=== PATIENT | female | born 1970 | race Caucasian/White ===

== ENCOUNTER 2022-09-29 13:30 | Outpatient (REF) | payer OTHER, SELFPAY ==
--- NOTE | ~2022-09-29 | XR_ITS ---
EXAMINATION: Bilateral foot and ankle x-ray CLINICAL INFORMATION: Rheumatoid arthritis COMPARISON: None. TECHNIQUE: 3 views of each foot and ankle FINDINGS: Left ankle: Bone alignment is normal. No fracture or dislocation. There is large erosion of the medial talus at the tibiotalar joint. The ankle mortise is otherwise normal. No significant ankle joint effusion. Small plantar calcaneal spur. Left foot: Contractures of the toes. Bone alignment is otherwise normal. No fracture or dislocation. Joint spaces are normal. Plantar calcaneal spur. Soft tissues are otherwise normal. Right ankle: Bone alignment is normal. No acute fracture or dislocation. Bony protuberance off the medial malleolus, question related to old trauma. Question of erosive changes of the inferior medial malleolus and adjacent soft tissue swelling. This is better appreciated on the AP view of the foot.. The ankle joint is otherwise normal. No ankle joint effusion. Normal soft tissues. Right foot: Bone alignment is normal. No fracture or dislocation. Joint spaces are normal. Soft tissues are normal. XR/XR foot LT min 3V IMPRESSION: Left: Large erosion of the medial talus at the tibiotalar joint. Contractures of the toes. Right: Question erosive changes of the medial malleolus and adjacent soft tissue swelling.
--- NOTE | ~2022-09-29 | XR_ITS ---
EXAMINATION: Bilateral hand and wrist x-ray CLINICAL INFORMATION: Rheumatoid arthritis COMPARISON: None. TECHNIQUE: 4 views of each hand and wrist FINDINGS: Right: Bone alignment is normal. No fracture or dislocation. Small erosion at the radial DIP joint of the second finger. Small cyst in the base of the first metacarpal bone, lunate and question distal ulna. Small osteophytes at the IP joints. Soft tissue calcification adjacent to the dorsal middle phalanx of the second finger likely related to old trauma. Left: Bone alignment is normal. No fracture or dislocation. Osteophytes at the DIP joints of the second and third fingers. Small cyst in the ulnar styloid. XR/XR hand wrist LT IMPRESSION: Right: Small erosions at the radial side of the DIP joint of the second finger. Small osteophytes at the IP joints. Small cysts in the hand and wrist. Soft tissues are unremarkable. Left: Osteophytes at the DIP joints of the second and third fingers and small cyst in the ulnar styloid.
--- NOTE | ~2022-09-29 | XR_ITS ---
EXAMINATION: Bilateral knee x-ray CLINICAL INFORMATION: Rheumatoid arthritis COMPARISON: None. TECHNIQUE: 4 views of each knee FINDINGS: Right: Bone alignment is normal. There are small osteophytes at the femoral tibial and patellofemoral joints. There is a moderate joint effusion. No erosions. There is soft tissue swelling over the patellar tendon Left: Bone alignment is normal. No osteophytes at the femoral tibial and patellofemoral joints. Small to moderate joint effusion. No erosions. Normal soft tissues. XR/XR knee standing BI IMPRESSION: Mild bilateral degenerative arthritis and joint effusion. Soft tissue swelling over the right patellar tendon.
--- NOTE | ~2022-09-29 | XR_ITS ---
EXAMINATION: Bilateral foot and ankle x-ray CLINICAL INFORMATION: Rheumatoid arthritis COMPARISON: None. TECHNIQUE: 3 views of each foot and ankle FINDINGS: Left ankle: Bone alignment is normal. No fracture or dislocation. There is large erosion of the medial talus at the tibiotalar joint. The ankle mortise is otherwise normal. No significant ankle joint effusion. Small plantar calcaneal spur. Left foot: Contractures of the toes. Bone alignment is otherwise normal. No fracture or dislocation. Joint spaces are normal. Plantar calcaneal spur. Soft tissues are otherwise normal. Right ankle: Bone alignment is normal. No acute fracture or dislocation. Bony protuberance off the medial malleolus, question related to old trauma. Question of erosive changes of the inferior medial malleolus and adjacent soft tissue swelling. This is better appreciated on the AP view of the foot.. The ankle joint is otherwise normal. No ankle joint effusion. Normal soft tissues. Right foot: Bone alignment is normal. No fracture or dislocation. Joint spaces are normal. Soft tissues are normal. XR/XR ankle LT min 3V IMPRESSION: Left: Large erosion of the medial talus at the tibiotalar joint. Contractures of the toes. Right: Question erosive changes of the medial malleolus and adjacent soft tissue swelling.
--- NOTE | ~2022-09-29 | XR_ITS ---
EXAMINATION: Bilateral hand and wrist x-ray CLINICAL INFORMATION: Rheumatoid arthritis COMPARISON: None. TECHNIQUE: 4 views of each hand and wrist FINDINGS: Right: Bone alignment is normal. No fracture or dislocation. Small erosion at the radial DIP joint of the second finger. Small cyst in the base of the first metacarpal bone, lunate and question distal ulna. Small osteophytes at the IP joints. Soft tissue calcification adjacent to the dorsal middle phalanx of the second finger likely related to old trauma. Left: Bone alignment is normal. No fracture or dislocation. Osteophytes at the DIP joints of the second and third fingers. Small cyst in the ulnar styloid. XR/XR hand wrist RT IMPRESSION: Right: Small erosions at the radial side of the DIP joint of the second finger. Small osteophytes at the IP joints. Small cysts in the hand and wrist. Soft tissues are unremarkable. Left: Osteophytes at the DIP joints of the second and third fingers and small cyst in the ulnar styloid.
--- NOTE | ~2022-09-29 | XR_ITS ---
EXAMINATION: Bilateral knee x-ray CLINICAL INFORMATION: Rheumatoid arthritis COMPARISON: None. TECHNIQUE: 4 views of each knee FINDINGS: Right: Bone alignment is normal. There are small osteophytes at the femoral tibial and patellofemoral joints. There is a moderate joint effusion. No erosions. There is soft tissue swelling over the patellar tendon Left: Bone alignment is normal. No osteophytes at the femoral tibial and patellofemoral joints. Small to moderate joint effusion. No erosions. Normal soft tissues. XR/XR knee LT 3V IMPRESSION: Mild bilateral degenerative arthritis and joint effusion. Soft tissue swelling over the right patellar tendon.
--- NOTE | ~2022-09-29 | XR_ITS ---
EXAMINATION: Bilateral knee x-ray CLINICAL INFORMATION: Rheumatoid arthritis COMPARISON: None. TECHNIQUE: 4 views of each knee FINDINGS: Right: Bone alignment is normal. There are small osteophytes at the femoral tibial and patellofemoral joints. There is a moderate joint effusion. No erosions. There is soft tissue swelling over the patellar tendon Left: Bone alignment is normal. No osteophytes at the femoral tibial and patellofemoral joints. Small to moderate joint effusion. No erosions. Normal soft tissues. XR/XR knee RT 3V IMPRESSION: Mild bilateral degenerative arthritis and joint effusion. Soft tissue swelling over the right patellar tendon.
--- NOTE | ~2022-09-29 | XR_ITS ---
EXAMINATION: Bilateral foot and ankle x-ray CLINICAL INFORMATION: Rheumatoid arthritis COMPARISON: None. TECHNIQUE: 3 views of each foot and ankle FINDINGS: Left ankle: Bone alignment is normal. No fracture or dislocation. There is large erosion of the medial talus at the tibiotalar joint. The ankle mortise is otherwise normal. No significant ankle joint effusion. Small plantar calcaneal spur. Left foot: Contractures of the toes. Bone alignment is otherwise normal. No fracture or dislocation. Joint spaces are normal. Plantar calcaneal spur. Soft tissues are otherwise normal. Right ankle: Bone alignment is normal. No acute fracture or dislocation. Bony protuberance off the medial malleolus, question related to old trauma. Question of erosive changes of the inferior medial malleolus and adjacent soft tissue swelling. This is better appreciated on the AP view of the foot.. The ankle joint is otherwise normal. No ankle joint effusion. Normal soft tissues. Right foot: Bone alignment is normal. No fracture or dislocation. Joint spaces are normal. Soft tissues are normal. XR/XR foot RT min 3V IMPRESSION: Left: Large erosion of the medial talus at the tibiotalar joint. Contractures of the toes. Right: Question erosive changes of the medial malleolus and adjacent soft tissue swelling.
--- NOTE | ~2022-09-29 | XR_ITS ---
EXAMINATION: Bilateral foot and ankle x-ray CLINICAL INFORMATION: Rheumatoid arthritis COMPARISON: None. TECHNIQUE: 3 views of each foot and ankle FINDINGS: Left ankle: Bone alignment is normal. No fracture or dislocation. There is large erosion of the medial talus at the tibiotalar joint. The ankle mortise is otherwise normal. No significant ankle joint effusion. Small plantar calcaneal spur. Left foot: Contractures of the toes. Bone alignment is otherwise normal. No fracture or dislocation. Joint spaces are normal. Plantar calcaneal spur. Soft tissues are otherwise normal. Right ankle: Bone alignment is normal. No acute fracture or dislocation. Bony protuberance off the medial malleolus, question related to old trauma. Question of erosive changes of the inferior medial malleolus and adjacent soft tissue swelling. This is better appreciated on the AP view of the foot.. The ankle joint is otherwise normal. No ankle joint effusion. Normal soft tissues. Right foot: Bone alignment is normal. No fracture or dislocation. Joint spaces are normal. Soft tissues are normal. XR/XR ankle RT min 3V IMPRESSION: Left: Large erosion of the medial talus at the tibiotalar joint. Contractures of the toes. Right: Question erosive changes of the medial malleolus and adjacent soft tissue swelling.
[2022-09-29 15:23] LABS: MANUAL DIFF FLAG NO
[2022-09-29 15:49] LABS: Basophils Percent Auto 0.7 % (0-2); Hematocrit 41.7 % (37.0-47.0); Imm Gran Abs Auto 0.03 X10*3/uL (0.00-0.03); Imm Gran Pct Auto 0.5 % (0.0-0.4); Lymphocytes Absolute Auto 1.7 X10*3/uL (1.2-4.9); Lymphocytes Percent Auto 28.2 % (20-40); Mean Corpuscular HGB Conc 33.6 g/dl (31.0-35.0); Mean Corpuscular Hemoglobin 28.8 pg (27.0-33.0); Mean Corpuscular Volume 85.8 fL (80.0-98.0); Mean Platelet Volume 10.3 fL (9.4-12.3); Monocytes Absolute Auto 0.5 X10*3/uL (0.1-1.2); Monocytes Percent Auto 7.5 % (2-11); Neutrophils Absolute Auto 3.9 x10*3/uL (2.0-8.3); Neutrophils Percent Auto 63.1 % (45-73); Platelet Count 281 X10*3/uL (160-400); Red Blood Count 4.86 X10*6/uL (4.20-5.50); Red Cell Distribution Width 12.6 % (11.0-16.0); White Blood Count 6.1 X10*3/uL (4.8-10.8)
[2022-09-29 16:27] LABS: Erythrocyte Sedimentation Rate 16 MM/HR (0-20)
[2022-09-29 16:34] LABS: Alanine Aminotransferase 29 U/L (0-31); Albumin Level 4.2 g/dL (3.5-5.0); Alkaline Phosphatase 109 U/L (39-117); Anion Gap 15 (12-20); Aspartate Amino Transferase 20 U/L (5-31); Bilirubin Total 0.9 mg/dL (0.0-1.0); Blood Urea Nitrogen 15 mg/dL (9-16); C Reactive Protein 1.76 mg/dL (< or = 0.50); Calcium 9.8 mg/dL (8.4-10.2); Carbon Dioxide 25 mmol/L (22-29); Chloride 107 mmol/L (96-108); Estimated Glomerular Filt Rate > 60; Glucose Random 94 mg/dL (60-115); Potassium 4.2 mmol/L (3.3-5.1); Rheumatoid Factor < 13.0 IU/mL (<15.0); Sodium 143 mmol/L (135-145); Total Protein 7.3 g/dL (6.5-8.0)
[2022-09-30 07:51] LABS: HBS Num1 4.39 mIU/mL (0-7.99); HBc Num1 0.09 S/CO (0.00-0.79); HBsAGNum1 0.27 S/CO (0.00-0.99); Hepatitis A Antibody IgM 0.37 Index (0-0.79); Hepatitis B Core Antibody Nonreactive (Nonreactive); Hepatitis B Surface Antigen Negative (Negative); ~HepC Num1 0.12 S/CO (0.00-0.79); ~Hepatitis A Antibody IgM Nonreactive (Nonreactive); ~Hepatitis B Surface Antibody NONREACTIVE (Nonreactive); ~Hepatitis C Antibody Nonreactive (Nonreactive)
[2022-10-01 17:18] LABS: TS Negative Control Passed; TS Panel A 0; TS Panel B 0; TS Positive Control Passed; TSpotTB Negative (Negative)
[2022-10-02 00:47] LABS: IgA 195 mg/dL (47-310); IgG 1103 mg/dL (600-1640); IgM 168 mg/dL (50-300)
[2022-10-04 20:34] LABS: Prot Elec - Albumin 4.3 g/dL (3.8-4.8); Prot Elec - Alpha1 0.4 g/dL (0.2-0.3); Prot Elec - Alpha2 0.8 g/dL (0.5-0.9); Prot Elec - Beta 1 0.5 g/dL (0.4-0.6); Prot Elec - Beta 2 0.4 g/dL (0.2-0.5); Prot Elec - Total Protein 7.4 g/dL (6.1-8.1)
[2022-10-05 11:18] LABS: Cyclic Citrullinated Peptide <16 UNITS
== END 2022-09-29 13:31 | disposition home or self-care (01) ==
LOC: HO.LNP 13:30
PROVIDERS: PCP Internal Medicine; Visit Provider Student in an Organized Health Care Education/Training Program
DX: Z11.7 Encounter for testing for latent tuberculosis infection (principal); Z11.59 Encounter for screening for other viral diseases; M06.9 Rheumatoid arthritis, unspecified; Z72.89 Other problems related to lifestyle
CPT/HCPCS: 36415; 73110; 73130; 73562; 73564; 73565; 73610; 73630; 80053; 82784; 84165; 85025; 85652; 86140; 86200; 86334; 86431; 86481; 86704; 86706; 86709; 86803; 87340; 99202

== ENCOUNTER 2022-12-29 14:28 | Outpatient (AMB) | payer OTHER, SELFPAY ==
[2022-12-29 14:45] VITALS: BP 120/72; PULSE 71; TEMP 36.5; O2SAT 98; BMI 42.9
--- NOTE | 2022-12-29 14:45 | A.OFFVIS_ITS ---
Intake Vital Signs 12/29/22 14:45 Height 5 ft 3 in Weight 242 lb 4.608 oz BMI 42.9 BP 120/72 Blood Pressure Location Rt brachial Position Sitting Pulse 71 Pulse Source Pulse Oximeter Temp 97.7 F Temp Source Skin Pulse Oximetry (%) 98 Oxygen Delivery Method Room Air Intake Visit Reasons: RA Intake Note: Here for RA follow up. Humira not working . c/o left knee pain and swelling worsening, feet neuropathy worsening Assessment Specialist Required: No Accompanied by: Significant Other Allergies hydroxyzine Allergy (Mild, Verified 12/29/22 14:50) Hives Penicillins Adverse Reaction (Unknown, Verified 12/29/22 14:50) Unknown Medication List - Last Reconciled 12/29/22 by Jose Manuel Thao MD amoxicillin-pot clavulanate 875-125 mg 1 tab PO BID 2 weeks aripiprazole 5 mg PO DAILY baclofen 5 mg PO BEDTIME PRN cholecalciferol (vitamin D3) (Vitamin D3) 50 mcg PO DAILY dicyclomine 10 mg PO ibuprofen 600 mg PO BID PRN levothyroxine 150 mcg PO DAILY losartan 50 mg PO DAILY meclizine 25 mg PO TID PRN prazosin 4 mg PO BEDTIME prednisone Take 3 tabs by mouth once daily with breakfast for 1 week then 2 tabs daily for 1 week then 1 tab daily for 1 week then stop venlafaxine ER 150 mg PO DAILY HPI HPI Comments History of Present Illness Details 52-year-old female with seronegative RA returns for follow-up. Patient has been on Humira for the last 3 months without much improvement. Continues to have pain in her wrists, fingers, hips, knees, worse on the left ankles and feet. Continues to have tingling and numbness in the bottom of her feet. Her dog bit her left hand yesterday. Her PCP prescribed her a prednisone course about 2 months ago which was helpful. For her left knee pain she was evaluated by an orthopedist and a left knee MRI was ordered. Initial history: This is a 51-year-old female who presents for evaluation of rheumatoid arthritis. She moved from [place] around 2 years ago. She has not established care with a therapeutic mentor in [place]. He states that she was diagnosed with rheumatoid arthritis around 2003. Initially she was on NSAIDs and Tylenol as well as steroid injections. She was on hydroxychloroquine briefly which was not effective. She was started on Humira 2009 which was effective. She has not taken Humira since 2020 after she left [place]. Patient is having pain in her hands feet, hips, knees, lower back. Few months ago she had steroid injections for bilateral hip trochanteric bursitis which only gave about a week relief. She then went for physical therapy for troc hanteric bursitis which provided some relief. She just completed physical therapy last week. States that her mother had RA [facility] Medical History (Updated 12/29/22 @ 15:29 by Jose Manuel Thao MD) Anxiety Carpal tunnel syndrome on both sides Depression Dyslipidemia Fibromyalgia, primary Hypothyroidism Prediabetes PTSD (post-traumatic stress disorder) Rheumatoid arthritis Surgical History H/O colonoscopy Family History Mother Diabetes Rheumatoid arthritis Father Colon cancer Social History Household Members: Spouse Household Members Other:: Antoni Sanchez Alcohol intake: current Alcohol intake frequency: holidays/special occasions only Patient Tobacco Use Status: Never used Tobacco Current occupational status: employed Current occupation: [employer] Reports arthralgias, Reports joint swelling, Reports numbness and Reports stiffness Neuro Reports numbness Physical Exam Vital Signs: Last Vital Signs Temp 97.7 F 12/29/22 14:45 Pulse 71 12/29/22 14:45 BP 120/72 12/29/22 14:45 Pulse Ox 98 12/29/22 14:45 Oxygen Delivery Method Room Air 12/29/22 14:45 BMI result Body Mass Index 42.9 Const General: cooperative, healthy appearing and comfortable Nutritional Appearance: obese morbidly obese Orientation/consciousness: patient oriented x3 Limitations: no limitations HEENT Head: Yes normocephalic and Yes atraumatic Resp Effort & Inspection: normal respiratory effort and able to speak in complete sentences Cardio Rate: regular rate Rhythm: regular rhythm Neuro General: patient oriented x3 Extrem Other: Right wrist tenderness to palpation and pain with full flexion and extension Right 4th and 5th MCP tenderness Right hand 3rd & 4th PIP joint tenderness Left wrist with pain with full flexion and extension Left 2nd finger swelling and minimal erythema as well as PIP tenderness Few tender MCPs on the left Right knee pain with flexion Left knee swelling and warmth Right trochanteric bursa area tenderness Diffuse tenderness of left MTPs Some deformity of left toes Assessment & Plan Assessment & Plan (1) Rheumatoid arthritis: Comment: dx around 2003 HCQ ineffective. Humira started around 2009 effective, restarted 09/22 - 12/23 ineffective Code(s): M06.9 - Rheumatoid arthritis, unspecified Plan: This is 51-year-old female with seronegative RA returns for follow-up. Patient has been on Humira 40 mg every other week consistently for the last 3 months with ongoing synovitis. Will need to change DMARDs. Patient failed hydroxychloroquine and Humira. Stop Humira. Discussed risks and benefits of Actemra. Patient agreed to proceed. Will start prior authorization for Actemra. Advised patient not to restart b iologic until her infection is resolved Prednisone taper for relief I asked patient to send me a report of her left knee MRI Follow-up in 3 months. Labs today and before next visit (2) Dog bite: Code(s): W54.0XXA - Bitten by dog, initial encounter Qualifiers: Encounter type: initial encounter Qualified Code(s): W54.0XXA - Bitten by dog, initial encounter Plan: Patient was bit by her pulmonary knee and last night, on exam her left index is mildly erythematous and swollen. Will prescribe a 2 week course of Augmentin. Patient stated that she is not allergic to amoxicillin. Advised patient to send me a picture of her hand after 1-2 weeks. And not to restart biologics until the infection is cleared Plan I spent 26 minutes reviewing patient's chart, evaluating patient, ordering diagnostic workup, counseling patient and documenting in the chart Orders: Orders Comprehensive Met. Panel Today M06.9 - Rheumatoid arthritis, unspecified C Reactive Protein Today M06.9 - Rheumatoid arthritis, unspecified Complete Blood Count Auto Diff Today M06.9 - Rheumatoid arthritis, unspecified Erythrocyte Sedimentation Rate Today M06.9 - Rheumatoid arthritis, unspecified Complete Blood Count Auto Diff 3 Months M06.9 - Rheumatoid arthritis, unspecified Comprehensive Met. Panel 3 Months M06.9 - Rheumatoid arthritis, unspecified C Reactive Protein 3 Months M06.9 - Rheumatoid arthritis, unspecified Erythrocyte Sedimentation Rate 3 Months M06.9 - Rheumatoid arthritis, unspecified Medications: New prednisone Take 3 tabs by mouth once daily with breakfast for 1 week then 2 tabs daily for 1 week then 1 tab daily for 1 week then stop 42 tabs 0RF amoxicillin-pot clavulanate 875-125 mg 1 tab PO BID 2 weeks 28 tabs 0RF Discontinued adalimumab (Humira(CF) Pen) Discontinued Reason: Doctor's Order inject one - 40 mg/0.4 mL pen every 2 weeks subcut 2 ea 3RF Coding Level of Care Code Est Pt Level 4 (44976) Diagnoses Rheumatoid arthritis M06.9 Dog bite W54.0XXA Encounter type: initial encounter
== END 2022-12-29 15:19 | disposition home or self-care (01) ==
PROVIDERS: PCP Internal Medicine; Visit Provider Student in an Organized Health Care Education/Training Program
DX: M06.9 Rheumatoid arthritis, unspecified (principal); W54.0XXA Bitten by dog, initial encounter
CPT/HCPCS: 99214

== ENCOUNTER 2022-12-29 14:28 | Outpatient (REF) | payer OTHER, SELFPAY ==
[2022-12-29 15:47] LABS: MANUAL DIFF FLAG NO
[2022-12-29 17:03] LABS: Basophils Percent Auto 0.7 % (0-2); Imm Gran Abs Auto 0.02 X10*3/uL (0.00-0.03); Imm Gran Pct Auto 0.4 % (0.0-0.4); Lymphocytes Absolute Auto 1.4 X10*3/uL (1.2-4.9); Lymphocytes Percent Auto 25.5 % (20-40); Mean Corpuscular HGB Conc 34.1 g/dl (31.0-35.0); Mean Corpuscular Hemoglobin 28.7 pg (27.0-33.0); Mean Corpuscular Volume 84.2 fL (80.0-98.0); Mean Platelet Volume 10.6 fL (9.4-12.3); Monocytes Absolute Auto 0.4 X10*3/uL (0.1-1.2); Monocytes Percent Auto 8.1 % (2-11); Neutrophils Absolute Auto 3.5 x10*3/uL (2.0-8.3); Neutrophils Percent Auto 65.3 % (45-73); Platelet Count 256 X10*3/uL (160-400); Red Blood Count 4.87 X10*6/uL (4.20-5.50); Red Cell Distribution Width 12.7 % (11.0-16.0); White Blood Count 5.4 X10*3/uL (4.8-10.8)
[2022-12-29 17:25] LABS: Alanine Aminotransferase 26 U/L (0-31); Albumin Level 4.2 g/dL (3.5-5.0); Alkaline Phosphatase 100 U/L (39-117); Anion Gap 11 (12-20); Aspartate Amino Transferase 18 U/L (5-31); Bilirubin Total 0.7 mg/dL (0.0-1.0); Blood Urea Nitrogen 18 mg/dL (9-16); Calcium 9.7 mg/dL (8.4-10.2); Carbon Dioxide 26 mmol/L (22-29); Chloride 110 mmol/L (96-108); Estimated Glomerular Filt Rate > 60; Glucose Random 99 mg/dL (60-115); Potassium 3.8 mmol/L (3.3-5.1); Sodium 143 mmol/L (135-145); Total Protein 7.3 g/dL (6.5-8.0)
[2022-12-29 18:12] LABS: Erythrocyte Sedimentation Rate 17 MM/HR (0-20)
== END 2022-12-29 14:29 | disposition home or self-care (01) ==
LOC: HO.LAB 14:28
PROVIDERS: PCP Internal Medicine; Visit Provider Student in an Organized Health Care Education/Training Program
DX: M06.9 Rheumatoid arthritis, unspecified (principal)
CPT/HCPCS: 36415; 80053; 85025; 85652; 86140; 99212

== ENCOUNTER → 2023-03-23 14:41 | Outpatient (BNVA) | payer OTHER, SELFPAY | PROVIDERS: PCP Internal Medicine; Visit Provider Student in an Organized Health Care Education/Training Program ==

== ENCOUNTER 2023-10-26 09:29 | Outpatient (REF) | payer OTHER, SELFPAY ==
[2023-10-26 10:56] LABS: MANUAL DIFF FLAG NO
[2023-10-26 10:59] LABS: Basophils Percent Auto 0.6 % (0-2); Hematocrit 40.8 % (37.0-47.0); Hemoglobin 14.2 g/dl (12.0-16.0); Imm Gran Abs Auto 0.02 X10*3/uL (0.00-0.03); Imm Gran Pct Auto 0.4 % (0.0-0.4); Lymphocytes Absolute Auto 1.3 X10*3/uL (1.2-4.9); Lymphocytes Percent Auto 26.4 % (20-40); Mean Corpuscular HGB Conc 34.8 g/dl (31.0-35.0); Mean Corpuscular Hemoglobin 29.2 pg (27.0-33.0); Mean Corpuscular Volume 83.8 fL (80.0-98.0); Mean Platelet Volume 9.9 fL (9.4-12.3); Monocytes Absolute Auto 0.4 X10*3/uL (0.1-1.2); Monocytes Percent Auto 7.9 % (2-11); Neutrophils Absolute Auto 3.2 x10*3/uL (2.0-8.3); Neutrophils Percent Auto 64.7 % (45-73); Platelet Count 286 X10*3/uL (160-400); Red Blood Count 4.87 X10*6/uL (4.20-5.50); Red Cell Distribution Width 13.1 % (11.0-16.0); White Blood Count 4.9 X10*3/uL (4.8-10.8)
[2023-10-26 11:14] LABS: Alanine Aminotransferase 26 U/L (0-31); Alkaline Phosphatase 105 U/L (39-117); Anion Gap 14 (12-20); Aspartate Amino Transferase 18 U/L (5-31); Bilirubin Total 0.5 mg/dL (0.0-1.0); Blood Urea Nitrogen 16 mg/dL (9-16); C Reactive Protein 2.01 mg/dL (< or = 0.50); Calcium 9.3 mg/dL (8.4-10.2); Carbon Dioxide 24 mmol/L (22-29); Chloride 108 mmol/L (96-108); Estimated Glomerular Filt Rate > 60; Glucose Random 154 mg/dL (60-115); Potassium 3.9 mmol/L (3.3-5.1); Sodium 142 mmol/L (135-145); Total Protein 7.1 g/dL (6.5-8.0)
[2023-10-26 11:40] LABS: Erythrocyte Sedimentation Rate 11 MM/HR (0-20)
== END 2023-10-26 09:30 | disposition home or self-care (01) ==
LOC: HO.10HDL 09:29
PROVIDERS: Visit Provider Student in an Organized Health Care Education/Training Program
DX: M06.9 Rheumatoid arthritis, unspecified (principal)
CPT/HCPCS: 36415; 80053; 85025; 85652; 86140

== ENCOUNTER 2023-11-02 14:00 | Outpatient (AMB) | payer OTHER, SELFPAY ==
--- NOTE | 2023-11-02 14:05 | MHC.OFFVIS ---
Vital Signs 11/02/23 14:08 Height 5 ft 3 in Weight 249 lb 1.957 oz BMI 44.1 BP 124/82 Blood Pressure Location Rt brachial Position Sitting Pulse 68 Pulse Source Pulse Oximeter Pulse Oximetry (%) 98 Oxygen Delivery Method Room Air Intake Visit Reasons: Pain/CONFIRMED Intake Note: Patient presents for pain. Pain level is very high Allergies hydroxyzine Allergy (Mild, Verified 11/02/23 14:12) Hives Penicillins Adverse Reaction (Unknown, Verified 11/02/23 14:12) Unknown Medication List - Last Reconciled 11/02/23 by Jose Manuel Thao MD Actemra ACTPen (tocilizumab) 162 mg (0.9 mL) subcut Q2W NS amoxicillin-pot clavulanate 875-125 mg 1 tab PO BID 2 weeks aripiprazole 5 mg PO DAILY baclofen 5 mg PO BEDTIME PRN cholecalciferol (vitamin D3) (Vitamin D3) 50 mcg PO DAILY dicyclomine 10 mg PO ibuprofen 600 mg PO BID PRN levothyroxine 150 mcg PO DAILY losartan 50 mg PO DAILY meclizine 25 mg PO TID PRN prazosin 4 mg PO BEDTIME venlafaxine ER 150 mg PO DAILY HPI Comments Details: 53-year-old female with seronegative RA returns for follow-up. Patient has not been seen in clinic since 12/2022. She states however that she has been compliant with Humira every 2 weeks. She does the injections in her right thigh. She states that she is doing much worse overall. Ongoing joint pain swelling and stiffness especially of her knees, her hands, her ankles, her hips. Initial history: This is a 51-year-old female who presents for evaluation of rheumatoid arthritis. She moved from [place] around 2 years ago. She has not established care with a vp cardiovascular in [place]. He states that she was diagnosed with rheumatoid arthritis around 2003. Initially she was on NSAIDs and Tylenol as well as steroid injections. She was on hydroxychloroquine briefly which was not effective. She was started on Humira 2009 which was effective. She has not taken Humira since 2020 after she left [place]. Patient is having pain in her hands feet, hips, knees, lower back. Few months ago she had steroid injections for bilateral hip trochanteric bursitis which only gave about a week relief. She then went for physical therapy for trochanteric bursitis which provided some relief. She just completed physical therapy last week. States that her mother had RA PFS Medical History (Updated 11/02/23 @ 16:40 by Jose Manuel Thao MD) Dog bite Carpal tunnel syndrome on both sides Fibromyalgia, primary Dyslipidemia Prediabetes Rheumatoid arthritis Depression Hypothyroidism PTSD (post-traumatic stress disorder) Anxiety Surgical History H/O colonoscopy Family History Mother Diabetes Rheumatoid arthritis Father Colon cancer Social History Household Members: Spouse Household Members Other:: Antoni Sanchez Alcohol intake: current Alcohol intake frequency: holidays/special occasions only Patient Tobacco Use Status: Never used Tobacco Current occupational status: employed Current occupation: [employer] Female Reproductive History Menstrual Total pregnancies: 0 Review of Systems Musc Reports arthralgias, Reports joint swelling, Reports numbness and Reports stiffness Neuro Reports numbness Physical Exam Vital Signs: Last Vital Signs Pulse 68 11/02/23 14:08 BP 124/82 11/02/23 14:08 Pulse Ox 98 11/02/23 14:08 Oxygen Delivery Method Room Air 11/02/23 14:08 BMI result Body Mass Index 44.1 Const General: cooperative, healthy appearing and comfortable Nutritional Appearance: obese morbidly obese Orientation/consciousness: patient oriented x3 Limitations: no limitations HEENT Head: Yes normocephalic and Yes atraumatic Resp Effort & Inspection: normal respiratory effort and able to speak in complete sentences Cardio Rate: regular rate Rhythm: regular rhythm Neuro General: patient oriented x3 Extrem Other: Right wrist tenderness to palpation and pain with full flexion and extension Right 3rd MCP swelling and tenderness Right 4th and 5th MCP tenderness Right hand 3rd & 4th PIP joint tenderness Left wrist with pain with full flexion and extension Left 2nd finger swelling and minimal erythema as well as PIP tenderness Few tender MCPs on the left Right knee pain with flexion Left knee swelling and warmth Bilateral trochanteric bursa area tenderness Diffuse tenderness of left MTPs Some deformity of left toes Office Procedures Joint Injection/Drain Joint Injection/Drain Details: Right hip trochanteric bursa Prep: site was prepped using sterile technique and ethochloride spray was applied Injected: 40 mg of, Kenalog and other (2 mL of 1% lidocaine) Approach Used: other Procedure: The patient tolerated the procedure well Coding Details: With the patient's consent, the right lateral hip area was prepped with Chloraprep and alcohol. Under a topical ethyl chloride spray the tender area over the trochanteric region was injected with 40 mg of Kenalog and 2 cc of 1% lidocaine. The patient tolerated the procedure with no adverse effects - Glenohumeral/Tronchanteric Bursa/Intraarticular Procedure code (CPT) selection complete Assessment & Plan Assessment & Plan (1) Rheumatoid arthritis: Comment: dx around 2003 HCQ ineffective. Humira started around 2009 effective, restarted 09/22 - 12/23 ineffective Actemra 12/2022 ineffective Code(s): M06.9 - Rheumatoid arthritis, unspecified Category: Medical Qualifiers: Rheumatoid arthritis location: multiple sites Rheumatoid factor presence: without rheumatoid factor Qualified Code(s): M06.09 - Rheumatoid arthritis without rheumatoid factor, multiple sites Plan: This is 53-year-old female with seronegative RA returns for follow-up. Patient is currently on Actemra 162 mg subQ injection every other week. She continues to have multiple swollen tender joints. Inflammatory markers elevated. I am having some Doubs about patient's compliance with Actemra. Her inflammatory markers are significantly elevated and those should be suppressed while on Actemra. Stated that she did the Actemra injection yesterday in the right thigh but I do not see any signs of recent injection. I had a long conversation today about patient's consistent. Advised patient on the importance of regular follow-up compliance with medication. DC subcu Actemra. Switch to IV infusions. Will start prior authorization for Actemra infusion Labs before next visit in 3 months (2) Greater trochanteric bursitis of both hips: Code(s): M70.61 - Trochanteric bursitis, right hip; M70.62 - Trochanteric bursitis, left hip Category: Medical Plan: The right hip was more symptomatic today, with patient's consent, right hip trochanteric bursa was Injected in clinic today. Advised patient to call the clinic if she desires an injection in the left hip (3) Carpal tunnel syndrome on both sides: Code(s): G56.03 - Carpal tunnel syndrome, bilateral upper limbs Category: Medical Plan: Others bilateral upper extremity EMG/NCV Plan I spent 45 minutes reviewing patient's chart, evaluating patient, ordering diagnostic workup, counseling patient and documenting in the chart Orders: Orders Comprehensive Met. Panel 3 Months M06.9 - Rheumatoid arthritis, unspecified C Reactive Protein 3 Months M06.9 - Rheumatoid arthritis, unspecified Erythrocyte Sedimentation Rate 3 Months M06.9 - Rheumatoid arthritis, unspecified Complete Blood Count Auto Diff 3 Months M06.9 - Rheumatoid arthritis, unspecified NE electromyogram (EMG) Today G56.03 - Carpal tunnel syndrome, bilateral upper limbs AMB Joint Injection/Aspiration Today M70.61 - Trochanteric bursitis, right hip, M70.62 - Trochanteric bursitis, left hip Coding Level of Care Code Est Pt Level 5 (95085) Diagnoses Rheumatoid arthritis of multiple sites with negative rheumatoid factor M06.09 Rheumatoid arthritis location: multiple sites Rheumatoid factor presence: without rheumatoid factor Greater trochanteric bursitis of both hips M70.61; M70.62 Carpal tunnel syndrome on both sides G56.03 CPT Codes Coding - Joint 7: 42922 - Glenohumeral/Tronchanteric Bursa/Intraarticular ([id number])
[2023-11-02 14:08] VITALS: BP 124/82; PULSE 68; O2SAT 98; BMI 44.1
== END 2023-11-02 14:33 | disposition home or self-care (01) ==
PROVIDERS: PCP Internal Medicine; Visit Provider Student in an Organized Health Care Education/Training Program
DX: M06.09 Rheumatoid arthritis without rheumatoid factor, multiple sites (principal); M70.61 Trochanteric bursitis, right hip; M70.62 Trochanteric bursitis, left hip; G56.03 Carpal tunnel syndrome, bilateral upper limbs
CPT/HCPCS: 20610; 99215

== ENCOUNTER → 2023-11-02 14:00 | Outpatient (BNVA) | payer OTHER, SELFPAY | PROVIDERS: PCP Internal Medicine; Visit Provider Student in an Organized Health Care Education/Training Program | DX: M06.09 Rheumatoid arthritis without rheumatoid factor, multiple sites (principal); M70.61 Trochanteric bursitis, right hip; M70.62 Trochanteric bursitis, left hip; G56.03 Carpal tunnel syndrome, bilateral upper limbs | CPT/HCPCS: 20610; 99212; J3301 ==

== ENCOUNTER 2023-12-02 13:51 | Outpatient (REF) | payer OTHER, SELFPAY ==
--- NOTE | 2023-12-02 13:59 | EMG_ITS ---
Chief complaint: History of RA, fibromyalgia, told to have neuropathy and Carpal Tunnel Syndrome, no past EMG Reason for referral: Evaluate for Carpal Tunnel Syndrome Referred by: Dr. Thao Procedure done: Bilateral upper extremities NCS/EMG Precautions and/or limitations: None The limb temperature was monitored continuously and remained between 32-36 degrees C during the performance of the NCS. Nerve Conduction Studies Anti Sensory Summary Table ?Stim Site NR Onset (ms) Norm Onset (ms) Peak (ms) Norm Peak (ms) O-P Amp (?V) Norm O-P Amp Site1 Site2 Delta-0 (ms) Dist (cm) Deepak (m/s) Norm Deepak (m/s) Left Median Anti Sensory (2nd Digit) Wrist ? 2.7 3.2 <3.6 33.0 >10 Wrist 2nd Digit 2.7 14.0 52 Right Median Anti Sensory (2nd Digit) Wrist ? 2.6 3.2 <3.6 31.0 >10 Wrist 2nd Digit 2.6 14.0 54 Left Ulnar Anti Sensory (5th Digit) Wrist ? 2.1 2.7 <3.7 39.6 >15.0 Wrist 5th Digit 2.1 14.0 67 Right Ulnar Anti Sensory (5th Digit) Wrist ? 2.2 3.0 <3.7 33.7 >15.0 Wrist 5th Digit 2.2 14.0 64 Motor Summary Table ?Stim Site NR Onset (ms) Norm Onset (ms) O-P Amp (mV) Norm O-P Amp iAmp (mV) Amp (1st) (%) Site1 Site2 Delta-0 (ms) Dist (cm) Deepak (m/s) Norm Deepak (m/s) Left Median Motor (Abd Poll Brev) Wrist ? 3.7 <3.9 7.5 >4.5 9.0 100.0 Elbow Wrist 4.0 22.0 55 >45 Elbow ? 7.7 3.3 4.0 44.0 Right Median Motor (Abd Poll Brev) Wrist ? 3.5 <3.9 9.7 >4.5 11.7 100.0 Elbow Wrist 3.8 19.0 50 >45 Elbow ? 7.3 9.1 11.1 93.8 Left Ulnar Motor (Abd Dig Minimi) Wrist ? 2.6 <3.0 9.1 >5 10.5 100.0 B Elbow Wrist 3.3 18.0 55 >45 B Elbow ? 5.9 6.5 7.6 71.4 A Elbow B Elbow 1.4 10.0 71 >45 A Elbow ? 7.3 6.2 7.2 68.1 Right Ulnar Motor (Abd Dig Minimi) Wrist ? 2.7 <3.0 8.0 >5 10.5 100.0 B Elbow Wrist 3.3 19.0 58 >45 B Elbow ? 6.0 7.6 9.9 95.0 A Elbow B Elbow 1.3 10.0 77 >45 A Elbow ? 7.3 7.4 9.8 92.5 Comparison Summary Table ?Stim Site NR Peak (ms) Norm Peak (ms) P-T Amp (?V) Site1 Site2 Delta-P (ms) Norm Delta (ms) Left Median/Radial Dig I Comparison (Digit 1 - 10cm) Median ? 2.8 <2.9 38.7 Median Radial 0.4 Radial ? 2.4 <2.8 23.2 Right Median/Radial Dig I Comparison (Digit 1 - 10cm) Median ? 2.6 <2.9 58.3 Median Radial 0.5 Radial ? 2.1 <2.8 29.8 EMG ?Side Muscle Nerve Root Ins Act Fibs Psw Amp Dur Poly Recrt Int Pat Comment Right 1stDorInt Ulnar C8-T1 Nml Nml Nml Nml Nml 0 Nml Complete Right FlexCarRad Median C6-7 Nml Nml Nml Nml Nml 0 Nml Complete Right Biceps Musculocut C5-6 Nml Nml Nml Nml Nml 0 Nml Complete Right Triceps Radial C6-7-8 Nml Nml Nml Nml Nml 0 Nml Complete Right Deltoid Axillary C5-6 Nml Nml Nml Nml Nml 0 Nml Complete Left 1stDorInt Ulnar C8-T1 Nml Nml Nml Nml Nml 0 Nml Complete Left FlexCarRad Median C6-7 Nml Nml Nml Nml Nml 0 Nml Complete Left Biceps Musculocut C5-6 Nml Nml Nml Nml Nml 0 Nml Complete Left Triceps Radial C6-7-8 Nml Nml Nml Nml Nml 0 Nml Complete Left Deltoid Axillary C5-6 Nml Nml Nml Nml Nml 0 Nml Complete FINDINGS: Interlatency difference between median and radial sensory nerves was 0.5 on right; 0.4 on left; which I consider still within normal. Evidence of possible David Gwen anastomosis was seen on left, which is a normal anatomic variant. All other nerves tested were within normal. Concentric needle EMG was performed in selected muscles of the bilateral upper extremities. Study did not reveal signs of electric abnormalities as shown in the table above. IMPRESSION: 1. This is a normal study. 2. There is no electrodiagnostic evidence for median neuropathy, ulnar neuropathy, brachial plexopathy, or cervical radiculopathy. Thank you for your kind referral. Effie Stroud MD, TC Board Certified, [place] [employer] and [employer] (ABPMR) Board Certified, [place] [employer] Electro[employer] (ABEM) CODIN [id number] x 2 MTDD
== END 2023-12-02 13:52 | disposition home or self-care (01) ==
LOC: HO.NEURO 13:51
PROVIDERS: PCP Internal Medicine; Visit Provider Student in an Organized Health Care Education/Training Program
DX: G56.03 Carpal tunnel syndrome, bilateral upper limbs (principal)
CPT/HCPCS: 95886; 95911

== ENCOUNTER → 2023-12-02 13:59 | Outpatient (BNV) | payer OTHER, SELFPAY | PROVIDERS: PCP Internal Medicine; Visit Provider Physical Medicine & Rehabilitation | DX: M79.641 Pain in right hand (principal); M79.642 Pain in left hand; R20.2 Paresthesia of skin | CPT/HCPCS: 95886; 95911 ==

== ENCOUNTER 2024-02-02 12:53 | Outpatient (AMB) | payer OTHER, SELFPAY ==
--- NOTE | 2024-02-02 13:16 | A.OFFVIS_ITS ---
Vital Signs 02/02/24 13:20 Height 5 ft 4 in Weight 254 lb 13.67 oz BMI 43.7 BP 130/80 Blood Pressure Location Rt brachial Position Sitting Pulse 69 Pulse Source Pulse Oximeter Pulse Oximetry (%) 96 Oxygen Delivery Method Room Air Intake Visit Reasons: RA Intake Note: Patient presents for RA. Allergies tocilizumab [From Actemra] Allergy (Intermediate, Verified 02/02/24 13:19) Chest tightness hydroxyzine Allergy (Mild, Verified 02/02/24 13:19) Hives methotrexate Adverse Reaction (Intermediate, Verified 02/02/24 14:47) Fatigued Penicillins Adverse Reaction (Unknown, Verified 02/02/24 13:19) Unknown Medication List - Last Reconciled 02/02/24 by Jose Manuel Thao MD aripiprazole 5 mg PO DAILY baclofen 5 mg PO BEDTIME PRN cholecalciferol (vitamin D3) (Vitamin D3) 50 mcg PO DAILY dicyclomine 10 mg PO ibuprofen 600 mg PO BID PRN levothyroxine 150 mcg PO DAILY losartan 50 mg PO DAILY meclizine 25 mg PO TID PRN prazosin 4 mg PO BEDTIME venlafaxine ER 150 mg PO DAILY HPI Comments Details: 53-year-old female with seronegative RA returns for follow-up. Patient had an allergic reaction to Actemra infusion and it was discontinued. I switched to methotrexate. She took methotrexate 15 mg once weekly for 2 weeks then took 20 mg once weekly for 6 weeks. Without improvement. Continues to have multiple tender joints. Since she took methotrexate she has been having generalized fatigue. Initial history: This is a 51-year-old female who presents for evaluation of rheumatoid arthritis. She moved from [place] around 2 years ago. She has not established care with a auto inspection specialist in [place]. He states that she was diagnosed with rheumatoid arthritis around 2003. Initially she was on NSAIDs and Tylenol as well as steroid injections. She was on hydroxychloroquine briefly which was not effective. She was started on Humira 2009 which was effective. She has not taken Humira since 2020 after she left [place]. Patient is having pain in her hands feet, hips, knees, lower back. Few months ago she had steroid injections for bilateral hip trochanteric bursitis which only gave about a week relief. She then went for physical therapy for trochant madeline bursitis which provided some relief. She just completed physical therapy last week. States that her mother had RA [facility] Medical History (Updated 02/02/24 @ 14:49 by Jose Manuel Thao MD) Dog bite Fibromyalgia, primary Dyslipidemia Prediabetes Rheumatoid arthritis Depression Hypothyroidism PTSD (post-traumatic stress disorder) Anxiety Surgical History H/O colonoscopy Family History Mother Diabetes Rheumatoid arthritis Father Colon cancer Social History Household Members: Spouse Household Members Other:: Antoni Sanchez Alcohol intake: current Alcohol intake frequency: holidays/special occasions only Patient Tobacco Use Status: Never used Tobacco Current occupational status: employed Current occupation: [employer] Female Reproductive History Menstrual Total pregnancies: 0 Review of Systems Musc Reports arthralgias, Reports joint swelling, Reports numbness and Reports stiffness Neuro Reports numbness Physical Exam Vital Signs: Last Vital Signs Pulse 69 02/02/24 13:20 BP 130/80 02/02/24 13:20 Pulse Ox 96 02/02/24 13:20 Oxygen Delivery Method Room Air 02/02/24 13:20 BMI result Body Mass Index 43.7 Const General: cooperative, healthy appearing and comfortable Nutritional Appearance: obese morbidly obese Orientation/consciousness: patient oriented x3 Limitations: no limitations HEENT Head: Yes normocephalic and Yes atraumatic Resp Effort & Inspection: normal respiratory effort and able to speak in complete sentences Cardio Rate: regular rate Rhythm: regular rhythm Neuro General: patient oriented x3 Extrem Other: Right wrist tenderness to palpation and pain with full flexion and extension Left 2nd finger swelling with tender MCP and PIP Multiple tender MCPs and PIP is bilaterally No elbow pain with flexion-extension bilaterally Left 2nd finger swelling and minimal erythema as well as PIP tenderness Right knee pain with flexion Left knee swelling and warmth Bilateral trochanteric bursa area tenderness Diffuse tenderness of left MTPs Some deformity of left toes Multiple fibromyalgia tender points Assessment & Plan Assessment & Plan (1) Rheumatoid arthritis: Comment: dx around 2003 HCQ ineffective. Humira started around 2009 effective, restarted 09/22 - 12/23 ineffective Actemra subQ injection 12/2022 -DC 11/2023 ineffective Actemra infusion 12/2023. Allergic reaction Methotrexate 12/2023 DC 02/2024 due to fatigue and ineffective Code(s): M06.9 - Rheumatoid arthritis, unspecified Category: Medical Qualifiers: Rheumatoid arthritis location: multiple sites Rheumatoid factor presence: without rheumatoid factor Qualified Code(s): M06.09 - Rheumatoid arthritis without rheumatoid factor, multiple sites Plan: This is 53-year-old female with seronegative RA returns for follow-up. She is currently on methotrexate 20 mg weekly. Denies to have active synovitis. Methotrexate caused significant fatigue. We will need to change DMARDs. Discussed risks and benefits of Rinvoq. Discussed black box warning of slightly increased cardiovascular events, thromboembolic phenomenon and malignancy with Rinvoq. Patient agreed to proceed. I provided patient with 2 sample boxes of Rinvoq. Advised patient to call the clinic in about 3 weeks and let us know how she feels. If she is feeling better, we will start prior authorization for Rinvoq Labs before next visit in 3 months (2) Bilateral hand numbness: Code(s): R20.0 - Anesthesia of skin Category: Medical Plan: EMG/NCV both upper extremities was normal (3) High risk medication use: Code(s): Z79.899 - Other gas jockey (current) drug therapy Category: Medical Plan: As mentioned above, risks and benefits of Rinvoq were discussed. Advised patient to get Shingrix vaccine (4) Fibromyalgia, primary: Code(s): M79.7 - Fibromyalgia Category: Medical Plan: Discussed management of fibromyalgia with patient. Is a noninflammatory, non- autoimmune central afferent processing disorder leading to a diffuse pain syndrome. Patient fol lows up regularly with her psychotherapist and psychiatrist. Advised patient to request a sleep study from her PCP to rule out SKYLA. Try to follow sleep hygiene practices. Patient would benefit from increased physical activity, either through formal physical therapy or by joining a gym. Advised patient that she should start activity slowly and increase as tolerated. Consider low-impact exercises such as walking, swimming, aqua therapy stretching, yoga. Plan I spent 45 minutes reviewing patient's chart, evaluating patient, ordering diagnostic workup, counseling patient and documenting in the chart Orders: Orders Complete Blood Count Auto Diff 3 Months M06.09 - Rheumatoid arthritis without rheumatoid factor, multiple sites Comprehensive Met. Panel 3 Months M06.09 - Rheumatoid arthritis without rheuma toid factor, multiple sites Erythrocyte Sedimentation Rate 3 Months M06.09 - Rheumatoid arthritis without rheumatoid factor, multiple sites C Reactive Protein 3 Months M06.09 - Rheumatoid arthritis without rheumatoid factor, multiple sites Medications: New Rinvoq ER (upadacitinib) Provided 2 sample boxes Lot number [id number] Expiration date 01/22/2025 15 mg PO DAILY 28 tabs 0RF NS Discontinued methotrexate sodium Discontinued Reason: Doctor's Order Take 6 tabs once weekly for 2 weeks then 8 tabs once weekly 64 tabs 0RF folic acid Discontinued Reason: Doctor's Order 1 mg PO DAILY 90 tabs 0RF Coding Level of Care Code Est Pt Level 5 (56347) Complex EM visit Add On G2211 Diagnoses Rheumatoid arthritis of multiple sites with negative rheumatoid factor M06.09 Rheumatoid arthritis location: multiple sites Rheumatoid factor presence: without rheumatoid factor Bilateral hand numbness R20.0 High risk medication use Z79.899 Fibromyalgia, primary M79.7
[2024-02-02 13:20] VITALS: BP 130/80; PULSE 69; O2SAT 96; BMI 43.7
== END 2024-02-02 13:51 | disposition home or self-care (01) ==
PROVIDERS: PCP Internal Medicine; Visit Provider Student in an Organized Health Care Education/Training Program
DX: M06.09 Rheumatoid arthritis without rheumatoid factor, multiple sites (principal); R20.0 Anesthesia of skin; Z79.899 Other long term (current) drug therapy; M79.7 Fibromyalgia
CPT/HCPCS: 99215; G2211

== ENCOUNTER 2024-02-02 12:53 | Outpatient (REF) | payer OTHER, SELFPAY ==
[2024-02-02 15:00] LABS: MANUAL DIFF FLAG NO
[2024-02-02 15:52] LABS: Basophils Percent Auto 0.5 % (0-2); Eosinophils Absolute Auto 0.1 X10*3/uL (0.0-0.4); Eosinophils Percent Auto 2.3 % (0-4); Hematocrit 41.2 % (37.0-47.0); Hemoglobin 13.7 g/dl (12.0-16.0); Imm Gran Abs Auto 0.04 X10*3/uL (0.00-0.03); Imm Gran Pct Auto 0.7 % (0.0-0.4); Lymphocytes Absolute Auto 1.6 X10*3/uL (1.2-4.9); Lymphocytes Percent Auto 26.4 % (20-40); Mean Corpuscular HGB Conc 33.3 g/dl (31.0-35.0); Mean Corpuscular Hemoglobin 28.8 pg (27.0-33.0); Mean Corpuscular Volume 86.6 fL (80.0-98.0); Mean Platelet Volume 10.5 fL (9.4-12.3); Monocytes Absolute Auto 0.5 X10*3/uL (0.1-1.2); Monocytes Percent Auto 7.4 % (2-11); Neutrophils Absolute Auto 3.8 x10*3/uL (2.0-8.3); Neutrophils Percent Auto 62.7 % (45-73); Platelet Count 266 X10*3/uL (160-400); Red Blood Count 4.76 X10*6/uL (4.20-5.50); Red Cell Distribution Width 13.7 % (11.0-16.0); White Blood Count 6.1 X10*3/uL (4.8-10.8)
[2024-02-02 16:42] LABS: Alanine Aminotransferase 28 U/L (0-31); Albumin Level 4.1 g/dL (3.5-5.0); Alkaline Phosphatase 110 U/L (39-117); Anion Gap 12 (12-20); Aspartate Amino Transferase 19 U/L (5-31); Bilirubin Total 0.5 mg/dL (0.0-1.0); Blood Urea Nitrogen 14 mg/dL (9-16); C Reactive Protein 3.54 mg/dL (< or = 0.50); Carbon Dioxide 27 mmol/L (22-29); Chloride 107 mmol/L (96-108); Estimated Glomerular Filt Rate > 60; Glucose Random 99 mg/dL (60-115); Sodium 142 mmol/L (135-145); Total Protein 7.3 g/dL (6.5-8.0)
[2024-02-02 17:00] LABS: Erythrocyte Sedimentation Rate 36 MM/HR (0-20)
== END 2024-02-02 12:54 | disposition home or self-care (01) ==
LOC: HO.LAB 12:53
PROVIDERS: PCP Internal Medicine; Visit Provider Student in an Organized Health Care Education/Training Program
DX: Z79.631 Long term (current) use of antimetabolite agent (principal); M06.09 Rheumatoid arthritis without rheumatoid factor, multiple sites; R20.0 Anesthesia of skin; M79.7 Fibromyalgia; Z79.899 Other long term (current) drug therapy
CPT/HCPCS: 36415; 80053; 85025; 85652; 86140; 99212

== ENCOUNTER 2024-05-10 13:47 | Outpatient (AMB) | payer OTHER, SELFPAY ==
--- NOTE | 2024-05-10 13:48 | MHC.OFFVIS ---
Vital Signs 05/10/24 13:52 Height 5 ft 4 in Weight 252 lb 6.868 oz BMI 43.3 BP 142/100 H Blood Pressure Location Rt brachial Position Sitting Pulse 64 Pulse Source Pulse Oximeter Pulse Oximetry (%) 98 Oxygen Delivery Method Room Air Intake Visit Reasons: RA Intake Note: Patient presents for RA. Allergies tocilizumab [From Actemra] Allergy (Intermediate, Verified 05/10/24 13:51) Chest tightness hydroxyzine Allergy (Mild, Verified 05/10/24 13:51) Hives upadacitinib [From Rinvoq] Allergy (Mild, Verified 05/10/24 14:34) Hives methotrexate Adverse Reaction (Intermediate, Verified 05/10/24 13:51) Fatigued semaglutide [From Wegovy] Adverse Reaction (Intermediate, Verified 05/10/24 14:34) Suicidal thoughts Penicillins Adverse Reaction (Unknown, Verified 05/10/24 13:51) Unknown Medication List - Last Reconciled 05/10/24 by Jose Manuel Thao MD aripiprazole 5 mg PO DAILY baclofen 5 mg PO BEDTIME PRN cholecalciferol (vitamin D3) (Vitamin D3) 50 mcg PO DAILY dicyclomine 10 mg PO ibuprofen 600 mg PO BID PRN levothyroxine 150 mcg PO DAILY losartan 50 mg PO DAILY meclizine 25 mg PO TID PRN prazosin 4 mg PO BEDTIME venlafaxine ER 150 mg PO DAILY HPI Comments Details: 53-year-old female with seronegative RA returns for follow-up. She took Rinvoq as prescribed for about 2 weeks and stopped it due to hives. She was not on any DMARDs currently. She states that she continues to have diffuse pain. She took Wegovy for 2 weeks, she stopped it due to suicidal thoughts Initial history: This is a 51-year-old female who presents for evaluation of rheumatoid arthritis. She moved from [place] around 2 years ago. She has not established care with a service liaison representative in [place]. He states that she was diagnosed with rheumatoid arthritis around 2003. Initially she was on NSAIDs and Tylenol as well as steroid injections. She was on hydroxychloroquine briefly which was not effective. She was started on Humira 2009 which was effective. She has not taken Humira since 2020 after she left [place]. Patient is having pain in her hands feet, hips, knees, lower back. Few months ago she had steroid injections for bilateral hip trochanteric bursitis which only gave about a week relief. She then went for physical therapy for trochanteric bursitis which provided some relief. She just completed physical therapy last week. States that her mother had RA PFSH Medical History Dog bite Fibromyalgia, primary Dyslipidemia Prediabetes Rheumatoid arthritis Depression Hypothyroidism PTSD (post-traumatic stress disorder) Anxiety Surgical History H/O colonoscopy Family History Mother Diabetes Rheumatoid arthritis Father Colon cancer Social History Household Members: Spouse Household Members Other:: Antoni Sanchez Alcohol intake: current Alcohol intake frequency: holidays/special occasions only Patient Tobacco Use Status: Never used Tobacco Current occupational status: employed Current occupation: [employer] Female Reproductive History Menstrual Total pregnancies: 0 Review of Systems Musc Reports arthralgias, Reports joint swelling, Reports numbness and Reports stiffness Neuro Reports numbness Physical Exam Vital Signs: Last Vital Signs Pulse 64 05/10/24 13:52 BP 142/100 H 05/10/24 13:52 Pulse Ox 98 05/10/24 13:52 Oxygen Delivery Method Room Air 05/10/24 13:52 BMI result Body Mass Index 43.3 Const General: cooperative, healthy appearing and comfortable Nutritional Appearance: obese morbidly obese Orientation/consciousness: patient oriented x3 Limitations: no limitations HEENT Head: Yes normocephalic and Yes atraumatic Resp Effort & Inspection: normal respiratory effort and able to speak in complete sentences Cardio Rate: regular rate Rhythm: regular rhythm Neuro General: patient oriented x3 Extrem Other: Right wrist tenderness to palpation and pain with full flexion and extension Left 2nd finger swelling with tender MCP and PIP Multiple tender MCPs and PIP is bilaterally , without significant swelling No elbow pain with flexion-extension bilaterally Numerous fibromyalgia tender points Assessment & Plan Assessment & Plan (1) Rheumatoid arthritis: Comment: dx around 2003 HCQ ineffective. Humira started around 2009 effective, restarted 09/22 - 12/23 ineffective Actemra subQ injection 12/2022 -DC 11/2023 ineffective Actemra infusion 12/2023. Allergic reaction Methotrexate 12/2023 DC 02/2024 due to fatigue and ineffective Rinvoq 02/2024, stopped after 2 weeks due to hives Code(s): M06.9 - Rheumatoid arthritis, unspecified Category: Medical Qualifiers: Rheumatoid arthritis location: multiple sites Rheumatoid factor presence: without rheumatoid factor Qualified Code(s): M06.09 - Rheumatoid arthritis without rheumatoid factor, multiple sites Plan: This is 53-year-old female with seronegative RA returns for follow-up. She is not on any DMARDs currently. On exam she has very few swollen and tender joints. The majority of her complaints today are due to fibromyalgia. Today we may need discussed management of fibromyalgia. We will continue to monitor patient off DMARDs at this time Labs before next visit in 3 months. Can consider starting another DMARDs at that time, can consider another KARLA inhibitors such as Xeljanz (2) Fibromyalgia, primary: Code(s): M79.7 - Fibromyalgia Category: Medical Plan: Discussed management of fibromyalgia with patient. Is a noninflammatory, non-autoimmune central afferent processing disorder leading to a diffuse pain syndrome. Patient follows up regularly with her psychotherapist and psychiatrist. Patient was too anxious to get a sleep study the sleeps lab. Try to follow sleep hygiene practices. Patient would benefit from increased physical activity, either through formal physical therapy or by joining a gym. Advised patient that she should start activity slowly and increase as tolerated. Patient walks her dog multiple times a day. Advised patient to consider adding some low impact exercises such as aquatherapy, swimming, light weights Plan I spent 25 minutes reviewing patient's chart, evaluating patient, ordering diagnostic workup, counseling patient and documenting in the chart Orders: Orders Complete Blood Count Auto Diff 3 Months M06.09 - Rheumatoid arthritis without rheumatoid factor, multiple sites Comprehensive Met. Panel 3 Months M06.09 - Rheumatoid arthritis without rheumatoid factor, multiple sites C Reactive Protein 3 Months M06.09 - Rheumatoid arthritis without rheumatoid factor, multiple sites Erythrocyte Sedimentation Rate 3 Months M06.09 - Rheumatoid arthritis without rheumatoid factor, multiple sites Hepatitis A,B,C Profile 3 Months Z11.59 - Encounter for screening for other viral diseases T Spot TB 3 Months Z11.7 - Encounter for testing for latent tuberculosis infection Coding Level of Care Code Est Pt Level 4 (49957) Diagnoses Rheumatoid arthritis of multiple sites with negative rheumatoid factor M06.09 Rheumatoid arthritis location: multiple sites Rheumatoid factor presence: without rheumatoid factor Fibromyalgia, primary M79.7
[2024-05-10 13:52] VITALS: BP 142/100; PULSE 64; O2SAT 98; BMI 43.3
== END 2024-05-10 14:32 | disposition home or self-care (01) ==
PROVIDERS: PCP Internal Medicine; Visit Provider Student in an Organized Health Care Education/Training Program
DX: M06.09 Rheumatoid arthritis without rheumatoid factor, multiple sites (principal); M79.7 Fibromyalgia
CPT/HCPCS: 99214

== ENCOUNTER → 2024-05-10 13:47 | Outpatient (BNVA) | payer OTHER, SELFPAY | PROVIDERS: PCP Internal Medicine; Visit Provider Student in an Organized Health Care Education/Training Program | DX: M06.09 Rheumatoid arthritis without rheumatoid factor, multiple sites (principal); M79.7 Fibromyalgia | CPT/HCPCS: 99212 ==

== ENCOUNTER 2024-09-28 13:56 | Outpatient (REF) | payer OTHER, SELFPAY ==
--- OUTSIDE RECORDS SUMMARY | 2024-09-28 14:09 | XMS_ITS | Clinical Summary ---
Author Organization [facility] Address [address] [place] [address] Phone Care Team Providers Care Review Specialist Name Role Phone Ana Laura Whitfield MD Primary Care Provider [phone] Allergies Active Allergy Reactions Criticality Noted Date Comments Penicillins Hives,Other 08/11/2021 Childhood reaction Medications ARIPiprazole (ABILIFY) 10 mg tablet Take 1 tablet (10 mg total) by mouth. Active baclofen (LIORESAL) 5 mg tablet Take 1 tablet (5 mg total) by mouth. at bedtime Active gabapentin (NEURONTIN) 100 mg capsule gabapentin 100 mg capsule Take 1 capsule 3 times a day by oral route. Active IBU 600 mg tablet Take 1 tablet (600 mg total) by mouth every 8 (eight) hours if needed. for pain 4 Active losartan potassium (COZAAR ORAL) Active prazosin (MINIPRESS) 2 mg capsule TAKE ONE CAPSULE BY MOUTH DAILY AT BEDTIME FOR NIGHTMARES Active Actemra ACTPen subcutaneous injection 4 Active venlafaxine HCl (EFFEXOR XR ORAL) Ac tive dicyclomine (BENTYL) 10 mg capsule TAKE ONE CAPSULE BY MOUTH FOUR TIMES A DAY (BEFORE MEALS AND AT NIGHT) 120 capsule 5 4 Active psyllium (Metamucil, with sugar,) 3.4 gram packet Take 1 packet by mouth 1 (one) time each day. 4 Active meclizine (ANTIVERT) 25 mg tablet Take 1 tablet (25 mg total) by mouth 3 (three) times a day. Active propranoloL (INDERAL) 10 mg tablet Take 2 tablets (20 mg total) by mouth 3 (three) times a day. Active Vitamin D3 50 mcg (2,000 unit) tablet TAKE ONE TABLET BY MOUTH EVERY DAY 90 tablet 1 5 Active losartan (COZAAR) 50 mg tablet TAKE ONE TABLET BY MOUTH EVERY DAY 90 tablet 1 5 Active levothyroxine (SYNTHROID, LEVOTHROID) 150 mcg tablet TAKE ONE TABLET BY MOUTH EVERY DAY WEDNESDAY THROUGH WEDNESDAY AND TAKE 2 TABLETS EVERY WEDNESDAY 34 tablet 5 Active naproxen (EC NAPROSYN) 500 mg EC tabletIndications :osteoarthritis,p ain Take 1 tablet (500 mg total) by mouth 2 (two) times a day if needed for mild pain. Do not crush, chew, or split. Take with food. 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 Anxiety 08/11/2021 Depression 08/11/2021 Dyslipidemia 08/11/2021 Hypothyroidism 08/11/2021 Prediabetes 08/11/2021 PTSD (post-traumatic stress disorder) 08/11/2021 Rheumatoid arthritis ([facility] V24, [facility] V28) 08/11/2021 Encounters Date Type Department Care Team Description 08/31/2024 4:47 PM EDT - 08/31/2024 11:59 PM EDT Hospital Encounter [facility] Xray [address] [place] [address] Bilateral hip pain Discharge Disposition: Home or Self Care 08/30/2024 2:30 PM EDT Office Visit Internal Medicine [facility] [address] [facility] [address] [place] [address] Ashlee Osborne NP Hypothyroidism, unspecified type (Primary Dx); MVP (mitral valve prolapse); Rheumatoid arthritis, involving unspecified site, unspecified whether rheumatoid factor present (CMS/HCC V24, [facility] V28); Primary osteoarthritis of left knee; Prediabetes; Depression, unspecified depression type; Bilateral hip pain; Pelvic pain; Small fiber neuropathy 08/30/2024 Telephone Internal Medicine - [facility] [address] [facility] [address] [place] [address] Ana Laura Whitfield MD from Last 3 Months Immunizations Name Administration Dates Next Due Influenza Quadravalent, MDCK , 0.5ml, preservative free (Flucelvax) 6mo and older 02/10/2023,02/13/2022 Influenza, Unspecified 03/03/2022 Zoster recombinant (Shingrix) 19yo and older Medical History Medical History Date Comments Abdominal cramping DX:Abdominal cramping Family history of colon cancer D X:Family history of colon cancer Colon polyps DX:Colon polyps Abdominal pain DX:Abdominal priti n Family History Medical History Relation Name Comments Colon cancer Father Diabetes Father Diabetes Mother Breast cancer Neg Hx Cancer of Small Bowel Neg Hx Kidney cancer Neg Hx Ovarian cancer Neg Hx Pancreatic cancer Neg Hx Uterine cancer Neg Hx Relation Name Status Comments Father Mother Social History Tobacco Use Types Packs/Day Years Used Date Smoking Tobacco: Never Smokeless Tobacco: Never Tobacco Cessation:Counseling Given: Not Answered Alcohol Use Standard Drinks/Week Comments Yes 0 (1 standard drink = 0.6 oz pur e alcohol) Comments No Sex and Gender Information Value Date Recorded Sex Assigned at Not on file Legal Sex Female 3:10 AM EST Gender Identity Not on file Sexual Orientation Not on file Obstetrics History Last Filed Vital Signs Vital Sign Reading Time Taken Comments Blood Pressure 122/80 08/30/2024 2:12 PM EDT Pulse 75 08/30/2024 2:12 PM EDT Temperature 36.2 ??C (97.1 ??F) 08/30/2024 2:12 PM ED T Respiratory Rate 12 04/20/2024 2:15 PM EST Oxygen Saturation 97% 08/30/2024 2:12 PM EDT Inhaled Oxygen Concentration - - Weight 109 kg (240 lb 9.6 oz) 08/30/2024 2:12 PM EDT Height 162.6 cm (5' 4 ) 08/30/2024 2:12 PM EDT Body Mass Index 41.3 08/30/2024 2:12 PM EDT Plan of Treatment Upcoming Encounters Date Type Department Care Team ([facility] st Contact Info) Description 10/04/2024 3:00 PM EDT Consult Orthopedic Surgery [facility] [address] [facility] [address] [place] [id number] Margret Christianson NP 175 [facility] [address] [place] [address] 02/28/2025 11:30 AM EDT Office Visit Internal Medicine - [facility] [address] [facility] [address] [place] [phone] Ashlee Osborne NP 175 [facility] [address] [place] [address] 03/14/2025 10:20 AM EST Office Visit [facility] [address] [place] [id number] Alexsander Puri MD [address] [place] [address] [address] [place] [address] Health Maintenance Due Date Last Done Comments DTaP,Tdap,and Td Vaccines (1 - Tdap) 10/30/1987 Hepatitis B Vaccines (1 of 3 - 19+ 3-dose series) 10/30/1987 Pneumococcal Vaccine: 50+ Years (1 of 2 - PCV) 10/30/1987 Pneumococcal Vaccine: Pediatrics (0 to 5 Years) and At-Risk Patients (6 to 64 Years) (1 of 2 - PCV) 10/30/1987 Cervical Cancer Screening: Pap Smear 1989 Colorectal Cancer Screening: Colonoscopy 04/12/2022 Depression Screening 04/12/2022 HIV Screening 04/12/2022 Hepatitis C Screening 04/12/2022 Social Influencers of Health Screening 04/12/2022 Zoster Vaccines (2 of 2) 07/20/2023 05/25/2023 COVID-19 Vaccine (3 - Pfizer risk series) 06/01/2024 05/04/2024, 05/20/2021 Hypertension/CHF/CAD Annual BMP Blood Test 03/08/2025 03/08/2024 Breast Cancer Screening 01/12/2026 01/13/20 24, 01/08/2023, 01/07/2023, Additional history exists Cholesterol Screening (Lipid Panel) 03/08/2029 03/08/2024 Influenza Vaccine Completed 03/16/2024, , 03/03/2022, Additional history exists HIB Vaccines Aged Out No longer eligi ble based on patient's age to complete this topic HPV Vaccines Aged Out No longer eligi ble based on patient's age to complete this topic Hepatitis A Vaccines Aged Out No long er eligible based on patient's age to complete this topic IPV Vaccines Aged Out No longer eligi ble based on patient's age to complete this topic MMR Vaccines Aged Out No longer eligi ble based on patient's age to complete this topic Meningococcal ACWY Vaccine Aged Out N o longer eligible based on patient's age to complete this topic Meningococcal B Vaccine Aged Out No l onger eligible based on patient's age to complete this topic RSV Immunization Patients Under 20 months Aged Out No longer eligible based on patient's age to complete this topic Varicella Vaccines Aged Out No longer eligible based on patient's age to complete this topic Procedures Procedure Name Priority Date/Time Associated Diagnosis Comments XR HIPS 5+ VIEWS WO OR W PELVIS BILAT Routine 08/31/2024 5:05 PM EDT Bilateral hip pain COMPREHENSIVE METABOLIC PANEL Routine 03/08/2024 7:52 AM EST Hypothyroidism, unspecified type Adult BMI 45.0-49.9 kg/sq m (CMS/HCC V24, CMS/HCC V28) Depression LIPID PANEL WITH REFLEX TO DIRECT LDL Routine 03/08/2024 7:52 AM EST Hypothyroidism, unspecified type Adult BMI 45.0-49.9 kg/sq m (CMS/HCC V24, CMS/HCC V28) Depression KELSEA SCREENING DIGITAL Routine 01/13/2024 9:04 AM EDT Encounter for screening mammogram for malignant neoplasm of breast from Last 3 Months or Most Recently Relevant to Health Maintenance Results * XR Hips 5+ Views wo or w Pelvis bilat (08/31/2024 5:05 PM EDT) Anatomical Region Laterality Modality Lower Extremities, Hip Bilateral Radiograp hic Imaging 09/04/2024 8:05 AM EDT Impressions 09/04/2024 8:06 AM EDT No acute findings. Mild osteoarthritis of the hips bilaterally. There is evidence of constipation. Code 36219 -------- FINAL REPORT -------- Dictated By: [place] Dictated Date: 09/04/2024 08:05 ET Assigned Physician: [place] Reviewed and Electronically Signed By: [place] Signed Date: 09/04/2024 08:06 ET Workstation ID: [id number] Transcribed By: Self Edit Transcribed Date: 09/04/2024 08:06 ET Narrative 09/04/2024 8:06 AM EDT HISTORY: The patient is a 53-year-old female with chronic bilateral hip pain and history of rheumatoid arthritis. FINDINGS: AP radiographs of the pelvis, along with coned-down AP and external rotation-abduction views of the right hip and coned down AP and external rotation-abduction views of the left hip, are obtained. The study demonstrates no fracture, dislocation, or osteolytic or osteoblastic lesion. There is narrowing of the hip joint spaces bilaterally consistent with mild osteoarthritis. There is no radiographic evidence of rheumatoid arthritis. The included portion of the colon demonstrates a moderate amount of fecal material consistent with constipation. Procedure Note [place] MD - 09/04/2024 HISTORY: The patient is a 53-year-old female with chronic bilateral hippain and history of rheumatoid arthritis. FINDINGS: AP radiographs of the pelvis, along with coned-down AP andexternal rotation-abduction views of the right hip and coned down AP andexternal rotation-abduction views of the left hip, are obtained. The studydemonstrates no fracture, dislocation, or osteolytic or osteoblasticlesion. There is narrowing of the hip joint spaces bilaterally consistentwith mild osteoarthritis. There is no radiographic evidence of rheumatoidarthritis. The included portion of the colon demonstrates a moderate amount of fecalmaterial consistent with constipation. IMPRESSION: No acute findings. Mild osteoarthritis of the hips bilaterally. There isevidence of constipation. Code 79190 -------- FINAL REPORT -------- Dictated By: [place] Dictated Date: 09/04/2024 08:05 ET Assigned Physician: [place] Reviewed and Electronically Signed By: [place] Signed Date: 09/04/2024 08:06 ET Workstation ID: [id number] Transcribed By: Self Edit Transcribed Date: 09/04/2024 08:06 ET us Ashlee Osborne BOILER ASSISTANT OPERATOR IMG XR PROCEDURES Final Result * (ABNORMAL) Lipid panel with reflex to direct LDL (03/08/2024 7:52 AM EST) Cholesterol 212(H) 0 - 200 mg/dL LAB CHEMISTRY METHOD 03/08/2024 10:27 AM EST [facility] Triglycerides 138 0 - 150 mg/dL LAB CHEMISTRY METHOD 03/08/2024 10:27 AM EST [facility] HDL 47 >=40 mg/dL LAB CHEMISTRY METHOD 03/08/2024 10:27 AM [facility] LDL Calculated 137(H) 0 - 100 mg/dL LAB CHEMISTRY METHOD 03/08/2024 10:27 AM EST [facility] VLDL Cholesterol Dav 27.6 mg/dL LAB CHEMISTRY METHOD 03/08/2024 10:27 AM EST [facility] Non HDL Chol. (LDL+VLDL) 165(H) <145 mg/dL LAB CHEMISTRY METHOD 03/08/2024 10:27 AM [facility] Chol/HDL Ratio 4.5(H) 0.0 - 4.4 LAB CHEMISTRY METHOD 03/08/2024 10:27 AM [facility] Blood Venous blood specimen / Unknown Venipuncture / Unknown 03/08/2024 7:52 AM EST 03/08/2024 7:52 AM EST us Ana Laura Whitfield MD LAB BLOOD ORDERABLES Final Res ult [facility] [address] [place] [address], [place] [phone] * (ABNORMAL) Comprehensive metabolic panel (03/08/2024 7:52 AM EST) Sodium 136 133 - 145 mmol/L LAB CHEMISTRY METHOD 03/08/2024 10:27 AM [facility] Potassium 4.0 3.5 - 5.5 mmol/L LAB CHEMISTRY METHOD 03/08/2024 10:27 AM [facility] Chloride 105 96 - 110 mmol/L LAB CHEMISTRY METHOD 03/08/2024 10:27 AM [facility] CO2 25 21 - 32 mmol/L LAB CHEMISTRY METHOD 03/08/2024 10:27 AM [facility] Anion Gap 6 3 - 11 LAB CHEMISTRY METHOD 03/08/2024 10:27 AM [facility] Glucose 120(H) 70 - 100 mg/dL LAB CHEMISTRY METHOD 03/08/2024 10:27 AM [facility] BUN 25 5 - 25 mg/dL LAB CHEMISTRY METHOD 03/08/2024 10:27 AM [facility] Creatinine 0.77 0.50 - 1.10 mg/dL LAB CHEMISTRY METHOD 03/08/2024 10:27 AM [facility] eGFR 91 >=60 mL/min/1. 73m2 LAB CHEMISTRY METHOD 03/08/2024 10:27 AM [facility] Comment:Calculation based on the??Chronic Kidney Disease Epidemiology Collaboration (CKD-EPI) equation refit??without adjustment for race. BUN/Creatinine Ratio 32.5 LAB CHEMISTRY METHOD 03/08/2024 10:27 AM [facility] Calcium 9.5 8.5 - 10.5 mg/dL LAB CHEMISTRY METHOD 03/08/2024 10:27 AM [facility] AST (SGOT) 26 10 - 42 unit/L LAB CHEMISTRY METHOD 03/08/2024 10:27 AM [facility] ALT (SGPT) 37 10 - 60 unit/L LAB CHEMISTRY METHOD 03/08/2024 10:27 AM EST [facility] Alkaline Phosphatase 123(H) 42 - 121 unit/L LAB CHEMISTRY METHOD 03/08/2024 10:27 AM EST [facility] Total Protein 7.7 6.0 - 8.0 g/dL LAB CHEMISTRY METHOD 03/08/2024 10:27 AM EST [facility] Albumin 4.2 3.2 - 5.0 g/dL LAB CHEMISTRY METHOD 03/08/2024 10:27 AM [facility] Total Bilirubin 1.3 0.0 - 1.4 mg/dL LAB CHEMISTRY METHOD 03/08/2024 10:27 AM [facility] Blood Venous blood specimen / Unknown Venipuncture / Unknown 03/08/2024 7:52 AM EST 03/08/2024 7:52 AM EST us Ana Laura Whitfield MD LAB BLOOD ORDERABLES Final Res ult [facility] [address] [place] [address], * KELSEA SCREENING DIGITAL (01/13/2024 9:04 AM EDT) Anatomical Region Laterality Modality Mammography 01/12/2024 4:14 PM EDT Narrative 01/13/2024 9:04 AM EDT [facility] Diagnostic Imaging Department [address] [place] [address] Patient: ??JENNIFER JIMENEZ ?/Age/Sex: 1970 - 53 - F Unit#: ??[id number] ? Location/Status: ??SPDIMAM/REG CLI ? Mnemonic/Ordering Site: ??DIGSC/SPMAM Ordering Physician: ??ANA LAURA WHITFIELD MD [facility] Screening Digital - 01/12/24 - 1624 Report Status:Signed EXAM: [facility] Screening Digital EXAM DATE AND TIME: 01/12/2024 4:25 PM HISTORY: ??Screening. COMPARISON: ??01/07/23, 12/26/21 TECHNIQUE: Bilateral digital breast tomosynthesis was performed in the CC and MLO projections. Computer aided detection with [employer] 3D 3.1 was employed. TISSUE DENSITY: a. The breasts are almost entirely fatty. FINDINGS: Possible developing asymmetry in the retroareolar area of the right breast seen in the MLO projection. Spot compression tomosynthesis views of the anterior breast with the nipple in profile are recommended. No grouped microcalcifications or areas of architectural distortion are seen. Scattered microcalcifications are unchanged. The skin and vascularity are unremarkable. IMPRESSION: 1. Possible developing right breast asymmetry, for which additional views are recommended. The patient will be called back. 2. Stable mammographic appearance of the left breast. No evidence of malignancy is seen. BI-RADS: ??Category 0: Incomplete - Need Additional Imaging Evaluation RECOMMENDATION(S): 1: Special mammographic view(s) needed RIGHT Mammogram performed at [facility] [place] [address] Dictating Physician: ??RAINA PHELPS MD Electronically Signed by: ??RAINA PHELPS MD Dic Date/Time: ??01/13/24901 Sign date/Time: ??01/13/24 09 Procedure Note Raina Phelps MD - 02/16/2024 [facility] Diagnostic Imaging Department [address] [place] [id number] Patient: ALFONSO JIMENEZOINETTE /Age/Sex: 1970 - 53 - F Unit#: [id number] Location/Status: SPDIMAM/REG CLI Mnemonic/Ordering Site: [facility] Ordering Physician: ANA LAURA WHITFIELD MD [facility] Screening Digital - 01/12/24 - 1624 Report Status:Signed EXAM: [facility] Screening Digital EXAM DATE AND TIME: 01/12/2024 4:25 PM HISTORY: Screening. COMPARISON: 01/07/23, 12/26/21 TECHNIQUE: Bilateral digital breast tomosynthesis was performed in the CCand MLO projections. Computer aided detection with [employer] 3D 3.1was employed. TISSUE DENSITY: a. The breasts are almost entirely fatty. FINDINGS: Possible developing asymmetry in the retroareolar area of the right breastseen in the MLO projection. Spot compression tomosynthesis views of theanterior breast with the nipple in profile are recommended. No grouped microcalcifications or areas of architectural distortion areseen. Scattered microcalcifications are unchanged. The skin and vascularityare unremarkable. IMPRESSION: 1. Possible developing right breast asymmetry, for which additional viewsare recommended. The patient will be called back. 2. Stable mammographic appearance of the left breast. No evidence ofmalignancy is seen. BI-RADS: Category 0: Incomplete - Need Additional Imaging Evaluation RECOMMENDATION(S): 1: Special mammographic view(s) needed RIGHT [facility] performed at [facility] [address] [place] [address] Dictating Physician: RAINA PHELPS MD Electronically Signed by: RAINA PHELPS MD Dic Date/Time: 01/13/24901 Sign date/Time: 01/13/24903 Ana Laura Whitfield MD IMG BI PROCEDURES Final Result from Last 3 Months or Most Recently Relevant to Health Maintenance Insurance [facility] [address] Care Teams Review Specialist Relationship Specialty Start Date End Date Ana Laura Whitfield MD [address] [place] [phone] PCP - General Internal Medicine 01/29/21
[2024-09-28 14:13] LABS: MANUAL DIFF FLAG NO
[2024-09-28 15:07] LABS: Basophils Percent Auto 0.4 % (0-2); Hematocrit 42.8 % (37.0-47.0); Hemoglobin 14.5 g/dl (12.0-16.0); Imm Gran Abs Auto 0.03 X10*3/uL (0.00-0.03); Imm Gran Pct Auto 0.4 % (0.0-0.4); Lymphocytes Absolute Auto 1.4 X10*3/uL (1.2-4.9); Lymphocytes Percent Auto 21.4 % (20-40); Mean Corpuscular HGB Conc 33.9 g/dl (31.0-35.0); Mean Corpuscular Hemoglobin 28.7 pg (27.0-33.0); Mean Corpuscular Volume 84.8 fL (80.0-98.0); Mean Platelet Volume 10.6 fL (9.4-12.3); Monocytes Absolute Auto 0.5 X10*3/uL (0.1-1.2); Neutrophils Absolute Auto 4.7 x10*3/uL (2.0-8.3); Neutrophils Percent Auto 69.8 % (45-73); Platelet Count 262 X10*3/uL (160-400); Red Blood Count 5.05 X10*6/uL (4.20-5.50); Red Cell Distribution Width 13.4 % (11.0-16.0); White Blood Count 6.7 X10*3/uL (4.8-10.8)
[2024-09-28 15:33] LABS: Alanine Aminotransferase 27 U/L (0-31); Albumin Level 4.4 g/dL (3.5-5.0); Anion Gap 13 (12-20); Aspartate Amino Transferase 23 U/L (5-31); Blood Urea Nitrogen 22 mg/dL (9-16); C Reactive Protein 3.65 mg/dL (< or = 0.50); Calcium 9.8 mg/dL (8.4-10.2); Carbon Dioxide 28 mmol/L (22-29); Chloride 106 mmol/L (96-108); Estimated Glomerular Filt Rate > 60; Glucose Random 97 mg/dL (60-115); Potassium 4.1 mmol/L (3.3-5.1); Sodium 143 mmol/L (135-145); Total Protein 7.5 g/dL (6.5-8.0)
[2024-09-28 15:40] LABS: Erythrocyte Sedimentation Rate 16 MM/HR (0-20)
[2024-09-28 17:00] LABS: Alkaline Phosphatase 108 U/L (39-117)
[2024-09-29 08:23] LABS: HBS Num1 6.61 mIU/mL (0-7.99); HBc Num1 0.12 S/CO (0.00-0.79); HBsAGNum1 0.33 S/CO (0.00-0.99); Hepatitis A Antibody IgM 0.19 Index (0-0.79); Hepatitis B Core Antibody Nonreactive (Nonreactive); Hepatitis B Surface Antigen Negative (Negative); ~HepC Num1 0.14 S/CO (0.00-0.79); ~Hepatitis A Antibody IgM Nonreactive (Nonreactive); ~Hepatitis B Surface Antibody NONREACTIVE (Nonreactive); ~Hepatitis C Antibody Nonreactive (Nonreactive)
[2024-10-01 18:58] LABS: TS Negative Control Passed; TS Panel A 0; TS Panel B 0; TS Positive Control Passed; TSpotTB Negative (Negative)
== END 2024-09-28 13:57 | disposition home or self-care (01) ==
LOC: HO.LAB 13:56
PROVIDERS: PCP Internal Medicine; Visit Provider Student in an Organized Health Care Education/Training Program
DX: M06.09 Rheumatoid arthritis without rheumatoid factor, multiple sites (principal)
CPT/HCPCS: 36415; 80053; 85025; 85652; 86140; 86481; 86704; 86706; 86709; 86803; 87340

== ENCOUNTER 2024-11-01 12:38 | Outpatient (AMB) | payer OTHER, SELFPAY ==
--- OUTSIDE RECORDS SUMMARY | 2024-11-01 13:08 | XMS_ITS | Data Portability ---
Author Organization [place] [facility] [address] Address [address] [place] [address] Assessment No assessment recorded. Plan of Treatment Reminders Order Date Submit Date Provider Last Modified By Organization Details Last Modified Time Details Appointments None record ed. Lab None record ed. Referral None record ed. Procedures None record ed. Surgeries None record ed. Imaging None record ed. Medication Orders None record ed. Patient TargetsNo targets recorded. Patient Instructions Encounter Date Encounter Id Patient Instructions Last Modified By Organization Details Last Modified Time 04/04/2022 [id number] cough: care instructions Not available 04/04/2022 19:26:02 Reason for Referral None Reported. Problems Name Problem SNOMED Code Status Onset Date Resolution Date Notes Provider Name and Address Organization Details Recorded Time Anxiety 98425571 Active 2021 PURNIMAIVONNE HAYES null, [place] - [facility] 2 18:09:23 Hypothyroid myopathy 19874633 Active 2021 PURNIMAIVONNE HAYES null, [place] - [facility] 2 18:10:06 Hypertensive disorder 93630177 Active 2021 PURNIMAERIC HAYES null, [place] - [facility] 2 18:10:18 Problem Notes None recorded. Procedures Surgical History Date Name Laterality Status Provider Name and Address Organization Details Recorded Time extraction of wisdom tooth completed PURNIMA HAYES PA - [facility] 04/04/2022 18:11:33 Remove tonsils and adenoids completed PURNIMAIVONNE HAYES PA - [facility] 04/04/2022 18:11:38 Imaging Results None recorded. Procedure Notes None recorded. Medical Equipment None Reported. Allergies Allergen ID Allergen Name Allergen Category Reaction Reaction Severity Criticality Documentation Date Start Date Code Code System Note Provider Name and Address Organization Details Recorded Time 6756 Product containin g penicilli n (product) medicatio n other Not available Not available 04/04/2022 11099 8001 SNOMED PURNIMA springer, [place] - [facility] 2 18:07:25 Medications Name Sig Start Date Stop Date Status Note LastModified by Organization Details LastModified Time levothyroxine active Not Available Not Available Not Available propranolol active Not Available Not A vailable Not Available meclizine active Not Available Not Juany ilable Not Available Effexor XR active Not Available Not Av ailable Not Available losartan active Not Available Not Avai lable Not Available Vitamin D3 active Not Available Not Av ailable Not Available Abilify active Not Available Not Avail able Not Available Vitals Date Recorded Body weight Body mass index (BMI) Body height Respiratory rate Oxygen saturation Oxygen saturation in Arterial blood by Pulse oximetry Heart rate Body temperature Systolic blood pressure Diastolic blood pressure Provider Name and Address Organization Details Last Updated DateTime 2 278372. 54 g 43.2 kg/m2 160.02 cm 18 /min 97 % 97 % 59 /min 98.6 [degF] 133 mm[Hg] 83 mm[Hg] PURNIMA HAYES PA - [facility] 2 18:13:13 Social History Question Answer Notes LastModified by Organizat [employer] Details LastModified Time Tobacco Smoking Status Never Smoker PURNIMA springer [place] - [facility] 04/04/2022 18:11:18 Have You Had Direct Contact, Or Contact During Intimacy, With Monkeypox Rash, Scabs, Or Body Fluids From A Person With Monkeypox? No Information not available 04/04/2022 Have You Recently Traveled Abroad? No Information not available 04/04/2022 Sex: Unknown Functional Status Question Answer Note LastModified by Organizat ion Details LastModified Time Do you use any illicit or recreational drugs? No Information not available 04/04/2022 Do you or have you ever used any other forms of tobacco or nicotine? No Information not available 04/04/2022 What is your level of alcohol consumption? None Information not available 04/04/2022 Mental Status None recorded. Family History Relationship Description Onset Age of this Age Resolved Age Notes LastModified by Organization Details LastModified Time Mother Low blood pressure [email or web address] Not available 2021 18:11:07 Medical History No medical history recorded. Gynecological HistoryNo gynecological history recorded. Obstetrics History GPAL:G 0 P 0 0 0 0 Immunizations Vaccine Type Date Status Note Provider Nam e and Address Organization Details Recorded Time influenza, unspecified formulation 03/03/2022 completed JO ANN Angel - [facility] 04/04/2022 18:10:33 Past Encounters Encounter ID Performer Location Encounter Start Date Encounter Closed Date Diagnosis/Indication Diagnosis SNOMED-CT Code Diagnosis ICD10 Code Diagnosis Note [id number] [facility] [address] JO ANN Dobbins [address] 06/24/2012 12:25:36 06/24/2012 13:30:22 [id number] [address] [address] [address] 2021 11:13:27 2021 11:55:[id number] [place] [address] [address] [address] 10/01/2021 14:34:32 10/01/2021 17:31:47 [id number] [place] [address] [address] 04/04/2022 17:57:25 04/04/2022 19:32:00 Respiratory syncytial virus infection 76487818 B97.4 Health Concerns Section Related Observation LastModified by Organization Detai ls LastModified Time None Recorded Concern Status LastModified by Organization Details LastModified Time None Recorded Advance Directives Directive None Recorded Payers Insurance Date Sequence Insurance Name Policy Number Policy Miranda Covered Member ID Miranda Member ID Guarantor Name 07/01/2024 1 [facility] GERMAN Jimenez [id number] Jennifer Jimenez 07/01/2024 1 [facility] [id number] Jennifer Jimenez [id number] Jennifer Jimenez Notes Date Note Type Note Provider Name and Address Organization Details Recorded Time 2 text/html CoughReported bypatient.source of patient informationInformation obtained from patient; Patient arrived at Urgent Care ambulatory Quality:harsh; intermittent Severity:improving; moderate Duration:intermittent; 7 days Timing:improving Context:RSV positive - test done at another urgent care center 4 days ago. Associated Symptoms:no fever; no chills; no chest pain; no heartburn; no nausea; no vomiting; no edema; no wheezingNotes:51 year old female presenting for evaluatio of a persistent dry cough for one week. She was seen at another urgent care center 4 days ago and reports she tested positive for RSV. Her symptoms are improving. She had transient diarrhea that resolved. She has an irritated throat from coughing. No fever, chills, headache, rash, stiff neck, abdominal pain, nausea, vomiting, body aches. She has some lateral chest wall pain with cough only. No leg pain or swelling. No nasal congestion or sinus pressure. No ear pain. Rose Casey MD [address] [place], [address], [place] - [facility] 04/04/2022 19:36:05 OBGyn Episode No OBEpisode recorded.
--- OUTSIDE RECORDS SUMMARY | 2024-11-01 13:08 | XMS_ITS ---
Author Name [facility] Organization Unknown Care Team Organization Name Specialty Phone Email Start Date End [facility]
--- OUTSIDE RECORDS SUMMARY | 2024-11-01 13:08 | XMS_ITS | Clinical Summary ---
Author Organization 175 [facility] Address [address] [place] [address] Phone Care Team Providers Care Final Inspector Shuttle Name Role Phone Ana Laura Whitfield MD Primary Care Provider [phone] Allergies Active Allergy Reactions Criticality Noted Date [...] times a day by oral route. Active losartan potassium (COZAAR ORAL) Active prazosin (MINIPRESS) 2 mg capsule TAKE ONE CAPSULE BY MOUTH DAILY AT BEDTIME FOR NIGHTMARES Active Actemra ACTPen subcutaneous injection 10/26/19 24 Active venlafaxine HCl (EFFEXOR XR ORAL) Active dicyclomine (BENTYL) 10 mg capsule TAKE ONE CAPSULE BY MOUTH FOUR TIMES A DAY (BEFORE MEALS AND AT NIGHT) 120 capsule 5 03/21/20 24 Active psyllium (Metamucil, with sugar,) 3.4 gram packet Take 1 packet by mouth 1 (one) time each day. 01/06/20 24 Active meclizine (ANTIVERT) 25 mg tablet Take 1 tablet (25 mg total) by mouth 3 (three) times a day. Active propranoloL (INDERAL) 10 mg tablet Take 2 tablets (20 mg total) by mouth 3 (three) times a day. Active Vitamin D3 50 mcg (2,000 unit) tablet TAKE ONE TABLET BY MOUTH EVERY DAY 90 tablet 1 06/26/19 25 Active losartan (COZAAR) 50 mg tablet TAKE ONE TABLET BY MOUTH EVERY DAY 90 tablet 1 07/04/19 25 Active levothyroxine (SYNTHROID, LEVOTHROID) 150 mcg tablet TAKE ONE TABLET BY MOUTH EVERY DAY WEDNESDAY THROUGH WEDNESDAY AND TAKE 2 TABLETS EVERY WEDNESDAY 34 tablet 5 08/15/19 25 Active naproxen (EC NAPROSYN) 500 mg EC tabletIndication s:osteoarthritis ,pain Take 1 tablet (500 mg total) by mouth 2 (two) times a day if needed for mild pain. Do not crush, chew, or split. Take with food. 60 tablet 11 08/31/19 25 Active IBU 600 mg tablet TAKE ONE TABLET BY MOUTH EVERY 8 HOURS NEEDED FOR PAIN 60 tablet 10 10/24/19 25 Active IBU 600 mg tablet Take 1 tablet (600 mg total) by mouth every 8 (eight) hours if needed. 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 Anxiety 08/11/2021 Depression 08/11/2021 Dyslipidemia 08/11/2021 Hypothyroidism 08/11/2021 Prediabetes 08/11/2021 PTSD (post-traumatic stress disorder) 08/11/2021 Rheumatoid arthritis ([facility] V24, [facility] V28) 08/11/2021 Encounters Date Type Department Care Team Description 08/31/2024 4:47 PM EDT - 08/31/2024 11:59 PM EDT Hospital Encounter [facility] [address] [place] [address] Bilateral hip pain Discharge Disposition: Home or Self Care 08/30/2024 2:30 PM EDT Office Visit Internal Medicine - [place] [address] [facility] [address] [place] [address] Ashlee Osborne NP Hypothyroidism, unspecified type (Primary Dx); MVP (mitral valve prolapse); Rheumatoid arthritis, involving unspecified site, unspecified whether rheumatoid factor present ([facility] V24, [facility] V28); Primary osteoarthritis of left knee; Prediabetes; Depression, unspecified depression type; Bilateral hip pain; Pelvic pain; Small fiber neuropathy 08/30/2024 Telephone Internal Medicine - [address] [place] [address] Ana Laura Whitfield MD from [...] 75 08/30/2024 2:12 PM EDT Temperature 36.2 C (97.1 F) 08/30/2024 2:12 PM EDT Respiratory Rate 12 04/20/2024 2:15 PM EST Oxygen Saturation 97% 08/30/2024 2:12 PM EDT Inhaled Oxygen Concentration - - Weight 109 kg (240 lb 9.6 oz) 08/30/2024 2:12 PM EDT Height 162.6 cm (5' 4 ) 08/30/2024 2:12 PM EDT Body Mass Index 41.3 08/30/2024 2:12 PM EDT Plan of Treatment Upcoming Encounters Date Type Department Care Team (Late st Contact Info) Description 02/28/2025 11:30 AM EDT Office Visit Internal Medicine - [place] [address] [facility] [address] [place] [address] Ashlee Osborne NP [address] [place] [address] 03/14/2025 10:20 AM EST Office Visit [facility] [address] [place] [id number] Alem-Alexsander Garcia MD [address] [place] [address] [address] [place] [address] Health Maintenance Due Date Last Done Comments [...] Procedure Name Priority Date/Time Associated Diagnosis Comments EXTERNAL CLINICAL LAB 10/02/2024 XR HIPS 5+ VIEWS WO OR W [...] Recently Relevant to Health Maintenance Results * External clinical lab (10/02/2024) Provider [facility] LAB BLOOD ORDERABLES Fin al Result * XR Hips 5+ Views wo or w Pelvis bilat (08/31/2024 5:05 PM EDT) Anatomical Region Laterality Modality Lower Extremities, Hip Bilateral Radiograp hic Imaging 09/04/2024 8:05 AM EDT Impressions 09/04/2024 8:06 AM EDT No acute findings. Mild osteoarthritis of the hips bilaterally. There is evidence of constipation. Code 35341 -------- FINAL REPORT -------- Dictated By: [place] Dictated Date: 09/04/2024 08:05 ET Assigned Physician: [place] Reviewed and Electronically Signed By: [place] Signed Date: 09/04/2024 08:06 ET Workstation ID: [id number] Transcribed By: Self Edit Transcribed Date: 09/04/2024 [...] hips bilaterally. There isevidence of constipation. Code 20478 -------- FINAL REPORT -------- Dictated By: [place] Dictated Date: 09/04/2024 08:05 ET Assigned Physician: [place] Reviewed and Electronically Signed By: [place] Signed Date: 09/04/2024 08:06 ET Workstation ID: [id number] Transcribed By: Self Edit Transcribed Date: 09/04/2024 08:06 ET us Jessicajin Osborne NETWORKER IMG XR PROCEDURES Final Result * (ABNORMAL) Lipid panel with reflex to direct LDL (03/08/2024 7:52 AM EST) Cholesterol 212(H) 0 - 200 mg/dL LAB CHEMISTRY METHOD 03/08/2024 10:27 AM EST [facility] Triglycerides 138 0 - 150 mg/dL LAB CHEMISTRY METHOD 03/08/2024 10:27 AM EST [facility] HDL 47 >=40 mg/dL LAB CHEMISTRY METHOD 03/08/2024 10:27 AM [facility] LDL Calculated 137(H) 0 - 100 mg/dL LAB CHEMISTRY METHOD 03/08/2024 10:27 AM EST [facility] VLDL Cholesterol Dav 27.6 mg/dL LAB CHEMISTRY METHOD 03/08/2024 10:27 AM EST [facility] Non HDL Chol. (LDL+VLDL) 165(H) <145 mg/dL LAB CHEMISTRY METHOD 03/08/2024 10:27 AM [facility] Chol/HDL Ratio 4.5(H) 0.0 - 4.4 LAB CHEMISTRY METHOD 03/08/2024 10:27 AM EST [facility] Blood Venous blood specimen / Unknown Venipuncture / Unknown 03/08/2024 7:52 AM EST 03/08/2024 7:52 AM EST us Ana Laura Whitfield MD LAB BLOOD ORDERABLES Final Res ult [facility] [address] [place] [address], [place] [phone] * (ABNORMAL) Comprehensive metabolic panel (03/08/2024 7:52 [...] [facility] Comment:Calculation based on the Chronic Kidney Disease Epidemiology Collaboration (CKD-EPI) equation refit without adjustment for race. BUN/Creatinine Ratio 32.5 LAB [...] 03/08/2024 10:27 AM [facility] Alkaline Phosphatase 123(H) 42 - 121 unit/L LAB CHEMISTRY METHOD 03/08/2024 10:27 AM EST [facility] Total Protein 7.7 6.0 - 8.0 g/dL LAB CHEMISTRY METHOD 03/08/2024 10:27 AM EST [facility] Albumin 4.2 3.2 - 5.0 g/dL LAB CHEMISTRY METHOD 03/08/2024 10:27 AM EST [facility] Total Bilirubin 1.3 0.0 - 1.4 mg/dL LAB CHEMISTRY METHOD 03/08/2024 10:27 AM EST [facility] Blood Venous blood specimen / Unknown Venipuncture / Unknown 03/08/2024 7:52 AM EST 03/08/2024 7:52 AM EST us Ana Laura Whitfield MD LAB BLOOD ORDERABLES Final Res ult [facility] [address] [place] [address], * [facility]ELSEA SCREENING DIGITAL (01/13/2024 9:04 AM EDT) Anatomical Region Laterality Modality Mammography 01/12/2024 4:14 PM EDT Narrative 01/13/2024 9:04 AM EDT [facility] Diagnostic Imaging Department [address] [place] [address] Patient: JENNIFER JIMENEZ /Age/Sex: 1970 - 53 - F Unit#: [id number] Location/Status: SPDIMAM/REG CLI Mnemonic/Ordering Site: DIGSC/SPMAM Ordering Physician: ANA LAURA WHITFIELD MD Kelsea Screening Digital - 01/12/24 - 1624 Report Status:Signed EXAM: [facility] Screening Digital EXAM DATE AND TIME: 01/12/2024 4:25 PM HISTORY: Screening. COMPARISON: 01/07/23, 12/26/21 TECHNIQUE: Bilateral digital breast tomosynthesis was performed in the CC and MLO projections. Computer aided detection with ImpactFlo 3D 3.1 was employed. TISSUE DENSITY: a. [...] No evidence of malignancy is seen. BI-RADS: Category 0: Incomplete - Need Additional Imaging Evaluation RECOMMENDATION(S): 1: Special mammographic view(s) needed RIGHT Mammogram performed at [facility] [place] [address] Dictating Physician: RAINA PHELPS MD Electronically Signed by: RAINA PHELPS MD Dic Date/Time: 01/13/24901 Sign date/Time: 01/13/24903 Procedure Note Raina Phelps MD - 02/16/2024 [facility] Diagnostic Imaging Department [address] [place] [address] Patient: JENNIFER JIMENEZ /Age/Sex: 1970 - 53 - F Unit#: [id number] Location/Status: SPDIMAM/REG CLI Mnemonic/Ordering Site: [facility] Ordering Physician: ANA LAURA WHITFIELD MD [facility] Screening Digital - 01/12/24 - 1624 Report Status:Signed EXAM: [facility] Screening Digital EXAM DATE AND TIME: 01/12/2024 4:25 PM HISTORY: Screening. COMPARISON: 01/07/23, 12/26/21 TECHNIQUE: Bilateral digital breast tomosynthesis was performed in the CCand MLO projections. Computer aided detection with ImpactFlo 3D 3.1was employed. TISSUE DENSITY: a. The [...] Mammogram performed at [facility] [place] [address] Dictating Physician: RAINA PHELPS MD Electronically Signed by: RAINA PHELPS MD Dic Date/Time: 01/13/24901 Sign date/Time: 01/13/24 0904 Ana Laura Whitfield MD IMG BI PROCEDURES Final Result from Last 3 Months or Most Recently Relevant to Health Maintenance Insurance [facility] [place] [address] Care Teams Final Inspector Shuttle Relationship Specialty Start Date End Date Ana Laura Whitfield MD [address] [address] PCP - General Internal Medicine 01/29/21
--- NOTE | 2024-11-01 13:46 | A.OFFVIS_ITS ---
Intake Visit Reasons: 4 weeks Allergies tocilizumab (From Actemra) Allergy (Intermediate, Verified 05/10/24 13:51) Chest tightness hydroxyzine Allergy (Mild, Verified 05/10/24 13:51) Hives upadacitinib (From Rinvoq) Allergy (Mild, Verified 05/10/24 14:34) Hives methotrexate Adverse Reaction (Intermediate, Verified 05/10/24 13:51) Fatigued semaglutide (From Wegovy) Adverse Reaction (Intermediate, Verified 05/10/24 14:34) Suicidal thoughts Penicillins Adverse Reaction (Unknown, Verified 05/10/24 13:51) Unknown Medication List - Last Reconciled 11/01/24 by Porfirio Wilkerson MD aripiprazole 5 mg PO DAILY baclofen 10 mg PO BID PRN cholecalciferol (vitamin D3) (Vitamin D3) 50 mcg PO DAILY dicyclomine 10 mg PO ibuprofen 600 mg PO BID PRN levothyroxine (Levoxyl) 100 mcg PO DAILY losartan 50 mg PO DAILY meclizine 25 mg PO TID PRN naproxen 500 mg PO BID prazosin 2 mg PO BEDTIME pregabalin mg PO BID venlafaxine ER 150 mg PO DAILY HPI Comments Details: She feels a significant reduction in her lower extremity paresthesia an dpain. Gets some itching across lower back and some bilateral hip pain. She has a history of severe PTSD, depression and anxiety,?seropositive rheumatoid arthritis, and fibromyalgia, who comes in with a three-year history of numbness and tingling in her feet that now goes all the way up to her knees symmetrically.? In the last 2 months, she has?also had some numbness and tingling in her fingertips.? She has trouble sleeping and has to sleep with the feet dangling off the bed.? Sometimes the feet are very sensitive to bed clothes touching them.? She was told that she has peripheral neuropathy by a director machine in [place], [place].? She had an upper extremity nerve conduction study done for carpal tunnel syndrome on 12/02/23, which was completely normal. 10/25/24 NCV/EMG lower extremities: Normal study except absent plantar responses bilaterally. Normal EMG L4-S1. [facility] Medical History (Updated 11/01/24 @ 13:48 by Porfirio Wilkerson MD) Sensory neuropathy Dog bite Fibromyalgia, primary Dyslipidemia Prediabetes Rheumatoid arthritis Depression Hypothyroidism PTSD (post-traumatic stress disorder) Anxiety Surgical History H/O colonoscopy Family History Mother Diabetes Rheumatoid arthritis Father Colon cancer Social History Household Members: Spouse Household Members Other:: Antoni Sanchez Alcohol intake: current Alcohol intake frequency: holidays/special occasions only Patient Tobacco Use Status: Never used Tobacco Current occupational status: employed Current occupation: [employer] Neuro Other: Neurological: Abnormal neurological findings:??blunting of pinprick sensation distal to the mid tarsal level bilaterally.? Areflexia throughout.?Mental Status:??alert and oriented X 3,?Normal attention, orientation, memory and affect.?Cranial Nerves:??Pupils are equal, round and reactive to light. Fundoscopy shows normal disc bilaterally. External occular muscles are intact. Visual santoyo are full, no ptosis. Face is symmetrical, no facial weakness or droop. Facial sensations are normal. Tongue protrudes in midline. Palate elevates symmetrically. Shoulder shrugging is normal..?Motor Examination:??Normal muscle tone, bulk and strength,?No atrophy or fasciculations,?No drift of the extended upper extremities,?Deep tendon reflexes are 0-1+?,?Plantars are flexor?.?Motor Strength:?Proximal Muscles (out of 5):5Distal Muscles (out of 5):5Neck Flexors (out of 5):5Neck Extensors (out of 5):5Deltoid (out of 5):5Biceps (out of 5):5 Triceps (out of 5):5Serratus Anterior (out of 5):5Wrist Extensors (out of 5):5 APB (out of 5):5Finger Spread (out of 5):5Ileopsoas (out of 5):5Quadriceps (out of 5):5Hamstrings (out of 5):5Tibialis Anterior (out of 5):5Peronei (out of 5):5 EDB (out of 5):5Gastrocnemius (out of 5):5Straight Leg Raising:??90 degrees.?Sensory Exam:??as above, otherwise normal light touch, temperature, pinprick, vibration and joint-position sensations?,?Rhomberg sign is absent.?Coordination:??no ataxia,?no titubation,?pbsrwr-sy-gwdg, veax-ympd-immi test and rapid alternating movements were normal.?Gait Exam:??Within normal limits.?Cerebellar Signs:??Nxowni-lr-sghs and phlb-qx-uhzb is normal,?no dysdiadochokinesia?.?Extrapyramidal System:??No tremor, rigidity with normal facial expressions,?No bradykinesia, no bradyphrenia. Normal arm swing and posture. No propulsion or retropulsion.?Speech:??Normal,?no dysphasia or dysarthria..? Mini Mental Status Exam: Level of Consciousness:??Alert.?Orientation:??Knows correct year, month, date, day and season,?Knows correct city, county and state. Knows correct location and floor.?Registration:??Able to register 3 objects.?Attention:??Serial 7's performed accurately.?Recall:??Able to recall 3 out of 3 objects.?Language:??Normal spontaneous speech, fluency, repetition,naming, comprehension, reading and writing.?Total Score:??30/30.? General Examination: GENERAL APPEARANCE:??normal,?in no acute distress.?HEAD:??normocephalic,?atraumatic.?EYES:??sclera non- icteric,?conjunctiva clear.?EARS:??auditory canal clear,?tympanic membrane intact, clear.?NOSE:??no lesions.?ORAL CAVITY:??gums normal,?mucosa moist,?no lesions.?THROAT:??clear.?NECK/THYROID:??no cervical lymphadenopathy,?thyroid normal,?neck supple, full range of motion,?no carotid bruit.?SKIN:??no rashes,?no significant birthmarks.?HEART:??S1, S2 normal,?no murmurs.?LUNGS:??clear anteriorly and posteriorly.?CHEST:??no gross rib deformity,?clear to auscultation.?BACK:??normal exam of spine.?EXTREMITIES:??no edema.?PERIPHERAL PULSES:??normal.?PSYCH:??alert, oriented,?cognitive function intact,?cooperative with exam.? Assessment & Plan Assessment & Plan (1) Sensory peripheral neuropathy: Code(s): G60.8 - Other hereditary and idiopathic neuropathies Category: Medical Plan Continue Pregabalin 150mg bid. Add Vitamin Bcomp. b-50 one a day Coding Level of Care Code Est Pt Level 4 (26037) Diagnoses Sensory peripheral neuropathy G60.8
== END 2024-11-01 13:56 | disposition home or self-care (01) ==
LOC: HO.HSM 12:39
PROVIDERS: PCP Internal Medicine; Visit Provider Psychiatry & Neurology Neurology
DX: G60.8 Other hereditary and idiopathic neuropathies (principal)
CPT/HCPCS: 99213

== ENCOUNTER → 2024-11-01 12:38 | Outpatient (BNVA) | payer OTHER, SELFPAY | PROVIDERS: PCP Internal Medicine; Visit Provider Psychiatry & Neurology Neurology | DX: R20.2 Paresthesia of skin (principal); R20.0 Anesthesia of skin; G60.8 Other hereditary and idiopathic neuropathies | CPT/HCPCS: 99212 ==

== ENCOUNTER 2024-12-13 14:17 | Outpatient (AMB) | payer OTHER, SELFPAY ==
--- OUTSIDE RECORDS SUMMARY | 2024-12-13 14:34 | XMS_ITS | Clinical Summary ---
Author Organization [address] [facility] Address [address] [place] [address] Phone Care Team Providers Care Groundman/Lineman Name Role Phone Dahiana Whitfield MD Primary Care Provider [phone] Allergies Active Allergy Reactions Criticality Noted Date [...] mouth 3 (three) times a day. Active losartan (COZAAR) 50 mg tablet TAKE ONE TABLET BY MOUTH EVERY DAY 90 tablet 1 07/04/19 25 Active naproxen (EC NAPROSYN) 500 mg [...] PAIN 60 tablet 10 10/24/19 25 Active cholecalciferol (VITAMIN D-3) 50 mcg (2,000 unit) tablet TAKE ONE TABLET BY MOUTH EVERY DAY 90 tablet 1 11/07/19 25 Active levothyroxine (SYNTHROID, LEVOTHROID) 150 mcg tablet TAKE ONE TABLET BY MOUTH EVERY DAY WEDNESDAY THROUGH WEDNESDAY AND TAKE 2 TABLETS EVERY WEDNESDAY 34 tablet 5 11/24/19 25 Active levothyroxine (SYNTHROID, LEVOTHROID) 150 mcg tablet TAKE ONE TABLET BY MOUTH EVERY DAY WEDNESDAY THROUGH WEDNESDAY AND TAKE 2 TABLETS EVERY WEDNESDAY 34 tablet 5 08/15/19 25 025 Discontinued Active Problems Problem Noted Date Diagnosed Date Other fatigue 04/20/2024 Mitral valve prolapse 10/27/2023 Fibromyalgia 02/11/2023 Primary osteoarthritis of left knee 02/11/2023 Hypertensive disorder 04/04/2022 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 Anxiety 08/11/2021 Depression 08/11/2021 Dyslipidemia 08/11/2021 Hypothyroidism 08/11/2021 Prediabetes 08/11/2021 PTSD (post-traumatic stress disorder) 08/11/2021 Rheumatoid arthritis ([facility] V24, [facility] V28) 08/11/2021 Immunizations Name Administration Dates Next Due Influenza [...] AM EDT Office Visit Internal Medicine - [place] [address] [facility] [address] [place] [address] Ashlee Osborne NP [address] [facility] [address] [place] [address] 03/14/2025 10:20 AM EST Office Visit [facility] [address] [place] [address] Alexsander Puri MD [address] [place] [address] [address] [place] [address] Health Maintenance Due Date Last Done Comments DTaP,Tdap,and Td Vaccines (1 - Tdap) 10/30/1987 Hepatitis B Vaccines (1 of 3 - 19+ 3-dose series) 10/30/1987 Pneumococcal Vaccine: 50+ Years (1 of 2 - PCV) 10/30/1987 Cervical Cancer Screening: Pap Smear 1989 Colorectal Cancer Screening: Colonoscopy 04/12/2022 HIV Screening 04/12/2022 Hepatitis C Screening 04/12/2022 Social Influencers of Health Screening 04/12/2022 Zoster Vaccines (2 of 2) 07/20/2023 05/25/2023 Depression Screening 05/03/2024 COVID-19 Vaccine (3 - Pfizer risk series) 06/01/2024 05/04/2024, 05/20/2021 Influenza Vaccine (#1) 2025 , 02/10/2023, 03/03/2022, Additional history exists Hypertension/CHF/CAD Annual BMP Blood Test 03/08/2025 03/08/2024 Breast Cancer Screening 01/12/2026 01/13/20 24, 01/08/2023, 01/07/2023, Additional history exists Cholesterol Screening (Lipid Panel) 03/08/2029 03/08/2024 HIB Vaccines Aged Out No longer eligi [...] Associated Diagnosis Comments EXTERNAL CLINICAL LAB 10/02/2024 COMPREHENSIVE METABOLIC PANEL Routine 03/08/2024 7:52 AM EST Hypothyroidism, unspecified type Adult BMI 45.0-49.9 kg/sq m (CMS/HCC V24, CMS/HCC V28) Depression LIPID PANEL WITH REFLEX TO DIRECT LDL Routine 03/08/2024 7:52 AM EST Hypothyroidism, unspecified type Adult BMI 45.0-49.9 kg/sq m (CMS/HCC V24, [facility]/HCC V28) Depression FLAKO SCREENING DIGITAL Routine 01/13/2024 9:04 AM EDT Encounter for screening mammogram for malignant neoplasm of breast from Last 3 Months or Most Recently Relevant to Health Maintenance Results * External clinical lab (10/02/2024) Provider [facility] LAB BLOOD ORDERABLES Fin al Result * (ABNORMAL) Lipid panel with reflex to direct LDL (03/08/2024 7:52 AM EST) Cholesterol 212(H) 0 - 200 mg/dL LAB CHEMISTRY METHOD 03/08/2024 10:[address] [facility] Triglycerides 138 0 - 150 mg/dL LAB CHEMISTRY METHOD 03/08/2024 10:[address] [facility] HDL 47 >=40 mg/dL LAB CHEMISTRY METHOD 03/08/2024 10:[address] [facility] LDL Calculated 137(H) 0 - 100 mg/dL LAB CHEMISTRY METHOD 03/08/2024 10:[address] [facility] VLDL Cholesterol Dav 27.6 mg/dL LAB CHEMISTRY METHOD 03/08/2024 10:[address] [facility] Non HDL Chol. (LDL+VLDL) 165(H) <145 mg/dL LAB CHEMISTRY METHOD 03/08/2024 10:[address] [facility] Chol/HDL Ratio 4.5(H) 0.0 - 4.4 LAB CHEMISTRY METHOD 03/08/2024 10:[address] [facility] Blood Venous blood specimen / Unknown Venipuncture / Unknown 03/08/2024 7:52 AM EST 03/08/2024 7:52 AM EST Dahiana Whitfield MD LAB BLOOD ORDERABLES Final Res ult [facility] [address] [place] [address], [place] [phone] * (ABNORMAL) Comprehensive metabolic panel (03/08/2024 7:52 AM EST) Sodium 136 133 - 145 mmol/L LAB CHEMISTRY METHOD 03/08/2024 10:[address] [facility] Potassium 4.0 3.5 - 5.5 mmol/L LAB CHEMISTRY METHOD 03/08/2024 10:[address] [facility] Chloride 105 96 - 110 mmol/L LAB CHEMISTRY METHOD 03/08/2024 10:[address] [facility] CO2 25 21 - 32 mmol/L LAB CHEMISTRY METHOD 03/08/2024 10:[address] [facility] Anion Gap 6 3 - 11 LAB CHEMISTRY METHOD 03/08/2024 10:[address] [facility] Glucose 120(H) 70 - 100 mg/dL LAB CHEMISTRY METHOD 03/08/2024 10:[address] [facility] BUN 25 5 - 25 mg/dL LAB CHEMISTRY METHOD 03/08/2024 10:[address] [facility] Creatinine 0.77 0.50 - 1.10 mg/dL LAB CHEMISTRY METHOD 03/08/2024 10:[address] [facility] eGFR 91 >=60 mL/min/1. 73m2 LAB CHEMISTRY METHOD 03/08/2024 10:[address] [facility] Comment:Calculation based on the Chronic Kidney Disease Epidemiology Collaboration (CKD-EPI) equation refit without adjustment for race. BUN/Creatinine Ratio 32.5 LAB CHEMISTRY METHOD 03/08/2024 10:[address] [facility] Calcium 9.5 8.5 - 10.5 mg/dL LAB CHEMISTRY METHOD 03/08/2024 10:[address] [facility] AST (SGOT) 26 10 - 42 unit/L LAB CHEMISTRY METHOD 03/08/2024 10:[address] [facility] ALT (SGPT) 37 10 - 60 unit/L LAB CHEMISTRY METHOD 03/08/2024 10:[address] [facility] Alkaline Phosphatase 123(H) 42 - 121 unit/L LAB CHEMISTRY METHOD 03/08/2024 10:[address] [facility] Total Protein 7.7 6.0 - 8.0 g/dL LAB CHEMISTRY METHOD 03/08/2024 10:[address] [facility] Albumin 4.2 3.2 - 5.0 g/dL LAB CHEMISTRY METHOD 03/08/2024 10:[address] [facility] Total Bilirubin 1.3 0.0 - 1.4 mg/dL LAB CHEMISTRY METHOD 03/08/2024 10:[address] [facility] Blood Venous blood specimen / Unknown Venipuncture / Unknown 03/08/2024 7:52 AM EST 03/08/2024 7:52 AM EST us Dahiana Whitfield MD LAB BLOOD ORDERABLES Final Res ult [facility] [address] [place] [address], * FLAKO SCREENING DIGITAL (01/13/2024 9:04 AM EDT) Anatomical Region Laterality Modality Mammography 01/12/2024 4:14 PM EDT Narrative 01/13/2024 9:04 AM EDT [facility] Diagnostic Imaging Department [address] [place] [address] Patient: JENNIFER JIMENEZ /Age/Sex: 1970 - 53 - F Unit#: [id number] Location/Status: SPDIMAM/REG CLI Mnemonic/Ordering Site: [facility] Ordering Physician: DAHIANA WHITFIELD MD [facility] Screening Digital - 01/12/24 - 1623 Report Status:Signed EXAM: [facility] Screening Digital EXAM DATE AND TIME: 01/12/2024 4:25 PM HISTORY: Screening. COMPARISON: 01/07/23, 12/26/21 TECHNIQUE: Bilateral digital breast tomosynthesis was performed in the CC and MLO projections. Computer aided detection with [employer] 3D 3.1 was employed. TISSUE DENSITY: a. [...] Mammogram performed at [facility] [place] [address] Dictating Physician: RAINA PHELPS MD Electronically Signed by: RAINA PHELPS MD Dic Date/Time: 01/13/24901 Sign date/Time: 01/13/24903 Procedure Note Raina Phelps MD - 02/16/2024 [facility] Diagnostic Imaging Department [address] [place] [id number] Patient: JEMIMAJENNIFER /Age/Sex: 1970 - 53 - F Unit#: [id number] Location/Status: SPDIMAM/REG CLI Mnemonic/Ordering Site: [facility] Ordering Physician: DAHIANA WHITFIELD MD [facility] Screening Digital - 01/12/24 - 1624 Report Status:Signed EXAM: [facility] Screening Digital EXAM DATE AND TIME: 01/12/2024 4:25 PM HISTORY: Screening. COMPARISON: 01/07/23, 12/26/21 TECHNIQUE: Bilateral digital breast tomosynthesis was performed in the CCand MLO projections. Computer aided detection with [employer] 3D 3.1was employed. TISSUE DENSITY: a. The [...] Mammogram performed at [facility] [address], [place] [address] Dictating Physician: RAINA PHELPS MD Electronically Signed by: RAINA PHELPS MD Dic Date/Time: 01/13/24901 Sign date/Time: 01/13/24903 Dahiana Whitfield MD IMG BI PROCEDURES Final Result from Last 3 Months or Most Recently Relevant to Health Maintenance Insurance [facility] [employer] Care Teams Groundman/Lineman Relationship Specialty Start Date End Date Dahiana Whitfield MD [address] [place] [phone] PCP - General Internal Medicine 01/29/21
--- NOTE | 2024-12-13 15:30 | MHC.OFFVIS ---
Vital Signs 12/13/24 15:36 Height 5 ft 4 in Weight 249 lb 5.485 oz BMI 42.8 BP 132/80 Blood Pressure Location Lt brachial Position Sitting Pulse 74 Pulse Source Pulse Oximeter Pulse Oximetry (%) 96 Oxygen Delivery Method Room Air Intake Visit Reasons: RA Intake Note: Patient presents for RA follow up. Allergies tocilizumab (From Actemra) Allergy (Intermediate, Verified 12/13/24 15:36) Chest tightness hydroxyzine Allergy (Mild, Verified 12/13/24 15:36) Hives upadacitinib (From Rinvoq) Allergy (Mild, Verified 12/13/24 15:36) Hives methotrexate Adverse Reaction (Intermediate, Verified 12/13/24 15:36) Fatigued semaglutide (From Wegovy) Adverse Reaction (Intermediate, Verified 12/13/24 15:36) Suicidal thoughts Penicillins Adverse Reaction (Unknown, Verified 12/13/24 15:36) Unknown HPI Comments Details: Patient is a 54 year old female with hypothyroidism, HTN, polyarticular OA, seronegative RA and fibromyalgia here today for follow up Interval History: Patient last seen 05/10/[address] Thao - Not on any DMARDs - Complained of polyarticular pain - Pain was attributed to fibromyalgia and no DMARDs were started Today, - Not on any DMARDs - Joint pain: hips and knees - Fell Wednesday and hit her knees which has aggravated her knee pain Rheumatologic History: Seronegative RA dx around 2003 HCQ ineffective. Humira started around 2009 effective, restarted 09/22 - 12/23 ineffective Actemra subQ injection 12/2022 -DC 11/2023 ineffective Actemra infusion 12/2023. Allergic reaction Methotrexate 12/2023 DC 02/2024 due to fatigue and ineffective Rinvoq 02/2024, stopped after 2 weeks due to hives Initial history: This is a 51-year-old female who presents for evaluation of rheumatoid arthritis. She moved from [place] around 2 years ago. She has not established care with a rough rice tender in [place]. He states that she was diagnosed with rheumatoid arthritis around 2003. Initially she was on NSAIDs and Tylenol as well as steroid injections. She was on hydroxychloroquine briefly which was not effective. She was started on Humira 2009 which was effective. She has not taken Humira since 2020 after she left [place]. Patient is having pain in her hands feet, hips, knees, lower back. Few months ago she had steroid injections for bilateral hip trochanteric bursitis which only gave about a week relief. She then went for physical therapy for trochanteric bursitis which provided some relief. She just completed physical therapy last week. States that her mother had RA Current Rheumatology Medication(s): [facility] Medical History (Updated 11/01/24 @ 13:48 by Porfirio Wilkerson MD) Sensory neuropathy Dog bite Fibromyalgia, primary Dyslipidemia Prediabetes Rheumatoid arthritis Depression Hypothyroidism PTSD (post-traumatic stress disorder) Anxiety Surgical History H/O colonoscopy Family History Mother Diabetes Rheumatoid arthritis Father Colon cancer Social History Household Members: Spouse Household Members Other:: Antoni Sanchez Alcohol intake: current Alcohol intake frequency: holidays/special occasions only Patient Tobacco Use Status: Never used Tobacco Current occupational status: employed Current occupation: [employer] Review of Systems Const Details: Review of Systems Constitutional: Denies fever, chills, weight loss ENT: Denies vision changes, eye pain or eye redness, dental caries, dry mouth GI: Denies nausea, vomiting, diarrhea, abdominal pain, change in BM Pulm: Denies SOB, CAMACHO, hemoptysis, wheezing Cards: Denies chest pain, palpitations Skin: Denies Raynaud's, rash, nail changes, photosensitivity, TINSMITH HELPER: Denies headaches, weakness, paresthesias, recurrent falls MSK: as per HPI All other systems reviewed and are unremarkable except noted above Physical Exam Exam Exam: Vital signs reviewed Physical Examination CONSTITUITIONAL Patient alert and cooperative. Well appearing and in no apparent painful distress MSK Hands Right Hand: Able to make a fist. No swelling or tenderness to palpation of these joints. Left Hand: Able to make a fist. No swelling or tenderness to palpation of these joints. Herbedens nodes noted bilaterally Wrists Right Wrist: Full ROM. 70 degrees of wrist flexion, 80 degrees of wrist extension. No swelling or TTP Left Wrist: Full ROM. 70 degrees of wrist flexion, 80 degrees of wrist extension. No swelling or TTP Elbows Right Elbow: Full ROM. No swelling or TTP. No TTP of the medial and lateral epicondyles Left Elbow: Full ROM. No swelling or TTP. No TTP of the medial and lateral epicondyles Shoulders Right shoulder: Full ROM. No swelling noted. Left shoulder: Full ROM. No swelling noted. TTP bilateral AC joints Hips Right hip: Good ROM. Pain elicited with hip flexion and internal rotation/external rotation Left hip: Good ROM. Pain elicited with hip flexion and internal rotation/external rotation Hip bursa: Tenderness to palpation bilaterally. R>L Knees Right knee: Full ROM. No swelling noted. No TTP of the knee joint lie or pes anserine bursa Left knee: Full ROM. Swelling noted laterally. TTP of the knee joint line. No TTP of the pes anserine bursa. Ankles Right ankle: Good ankle dorsiflexion and plantar flexion. No swelling. No TTP of the ankle joint Left ankle: Good ankle dorsiflexion and plantar flexion. No swelling. No TTP of the ankle joint Feet Right foot: Negative squeeze test Left foot: Negative squeeze test Tender points? No tenderness to palpation of the bilateral trapezius, supraspinatus, anterior costochondral junctions, bilateral suboccipital muscle insertions SKIN No rashes Vital Signs: Last Vital Signs Pulse 74 12/13/24 15:36 BP 132/80 12/13/24 15:36 Pulse Ox 96 12/13/24 15:36 Oxygen Delivery Method Room Air 12/13/24 15:36 BMI result Body Mass Index 42.8 Office Procedures AMB Joint Injection/Aspiration Joint Injection/Aspiration Details: Procedure was explained to the patient and informed consent was obtained. ? Risks associated with the procedure were discussed with the patient including but not limited to bleeding, infection, drug reactions and reactions to the topical anesthetic. Patient made aware of signs to look out for infectious complications. The area of interest was identified and confirmed with patient. ?This was subsequently cleaned with chlorhexidine x 2. ? The area was then anesthetized using ethyl chloride spray. 40 mg Kenalog with 1 cc 1% lidocaine was injected without issue. ?Minimal to no bleeding. ?Patient tolerated procedure. Prep: site was prepped using aseptic technique and ethochloride spray was applied Injected: 40 mg of, Kenalog, with 1 mL of and 1% plain lidocaine Procedure: The patient tolerated the procedure well Coding - Acromioclavicular Procedure code (CPT) selection complete AMB Joint Injection/Aspiration Joint Injection/Aspiration Details: Procedure was explained to the patient and informed consent was obtained. ? Risks associated with the procedure were discussed with the patient including but not limited to bleeding, infection, drug reactions and reactions to the topical anesthetic. Patient made aware of signs to look out for infectious complications. The area of interest was identified and confirmed with patient. ?This was subsequently cleaned with chlorhexidine x 2. ? The area was then anesthetized using ethyl chloride spray. 40 mg Kenalog with 1 cc 1% lidocaine was injected without issue. ?Minimal to no bleeding. ?Patient tolerated procedure. Primary Site: left shoulder Prep: site was prepped using aseptic technique and ethochloride spray was applied Injected: 40 mg of, Kenalog, with 1 mL of and 1% plain lidocaine Procedure: The patient tolerated the procedure well Coding 77638 - Acromioclavicular Procedure code (CPT) selection complete Office Meds lidocaine (PF) 10 mg/mL (1 %) injection solution Performing Provider: Sherly Banks MD Performing Location: [facility] Administered by: Meli Benavidez RN on 12/13/24 16:05 Dose Route Admin Location Dispensed Lot Number Expiration Date [facility] [employer] 1 mL Infiltration 2 mL [id number] 07/31/26 26675-799-90 [employer] Total Dispensed Waste 2 mL 50 % Kenalog 40 mg/mL suspension for injection Performing Provider: Sherly Banks MD Performing Location: [facility] Administered by: Meli Benavidez RN on 12/13/24 16:05 Dose Route Admin Location Dispensed Lot Number Expiration Date [facility] [employer] 40 mg intra-articular 1 mL [id number] 08/30/25 [address]-7 [employer] Total Dispensed Waste 1 mL 0 % lidocaine (PF) 10 mg/mL (1 %) injection solution Performing Provider: Sherly Banks MD Performing Location: [facility] Administered by: Meli Benavidez RN on 12/13/24 16:05 Dose Route Admin Location Dispensed Lot Number Expiration Date [facility] [employer] 1 mL Infiltration 2 mL [id number] 08/30/26 65471-880-18 [employer] Total Dispensed Waste 2 mL 50 % Kenalog 40 mg/mL suspension for injection Performing Provider: Sherly Banks MD Performing Location: [facility] Administered by: Meli Benavidez RN on 12/13/24 16:05 Dose Route Admin Location Dispensed Lot Number Expiration Date [facility] [employer] 40 mg intra-articular 1 mL [id number] 08/30/25 [address]-9 [employer]AR Total Dispensed Waste 1 mL 0 % Results Reviewed Results Reviewed: Laboratory Tests 02/02/24 09/28/24 14:58 14:12 WBC 6.7 RBC 5.05 Hgb 14.5 Hct 42.8 Plt Count 262 ESR 36 H 16 Sodium 143 Potassium 4.1 Chloride 106 Carbon Dioxide 28 BUN 22 H Creatinine 0.56 AST 23 ALT 27 C-Reactive Protein 3.54 H 3.65 H Laboratory Tests 09/29/22 15:21 Rheumatoid Factor < 13.0 Cycl Citrul Peptide IgG <16 Laboratory Tests 09/28/24 14:12 Hepatitis A IgM Ab Nonreactive Hep Bs Antigen Negative Hep Bs Antibody NONREACTIVE Hep B Core Total Ab Nonreactive Hepatitis C Ab (EIA) Nonreactive TB Test (T-Spot) Com Negative EMG Bilateral LE 10/2024 Normal motor and sensory nerve conduction velocities in the lower extremities, except for bilateral absent plantars. Normal EMG in the left L4-S1 innervated muscles XR Knees 08/2022 FINDINGS: Right: Bone alignment is normal. There are small osteophytes at the femoral tibial and patellofemoral joints. There is a moderate joint effusion. No erosions. There is soft tissue swelling over the patellar tendon Left: Bone alignment is normal. No osteophytes at the femoral tibial and patellofemoral joints. Small to moderate joint effusion. No erosions. Normal soft tissues. IMPRESSION: Mild bilateral degenerative arthritis and joint effusion. Soft tissue swelling over the right patellar tendon. Assessment & Plan Assessment & Plan (1) Rheumatoid arthritis: Comment: dx around 2003 HCQ ineffective. Humira started around 2009 effective, restarted 09/22 - 12/23 ineffective Actemra subQ injection 12/2022 -DC 11/2023 ineffective Actemra infusion 12/2023. Allergic reaction Methotrexate 12/2023 DC 02/2024 due to fatigue and ineffective Rinvoq 02/2024, stopped after 2 weeks due to hives Code(s): M06.9 - Rheumatoid arthritis, unspecified Category: Medical Qualifiers: Rheumatoid arthritis location: multiple sites Rheumatoid factor presence: without rheumatoid factor Qualified Code(s): M06.09 - Rheumatoid arthritis without rheumatoid factor, multiple sites Plan: #Seronegative RA Patient is a 54 y.o. female with seronegative RA here today for follow up Currently in remission with no evidence of synovitis on exam Will continue to monitor off DMARDs Plan - Monitor off DMARDs - RTC 6 months - Labs before visit: CBC, CMP, ESR, CRP (2) Polyarticular osteoarthritis: Code(s): M15.9 - Polyosteoarthritis, unspecified Plan: #Polyarticular OA Patient with polyarticular OA involving hands, knees, AC joint, and hips S/p bilateral steroid injection to AC joint today Send to PT for knee OA and knee stability Plan I spent 25 minutes reviewing the record and labs, taking a history, examining the patient, discussing the treatment plan, ordering diagnostic work up and documenting in the medical record Orders: Orders AMB Joint Injection/Aspiration Today M19.011 - Primary osteoarthritis, right shoulder, M19.012 - Primary osteoarthritis, left shoulder PT Evaluation and Treatment Today M17.0 - Bilateral primary osteoarthritis of knee AMB Joint Injection/Aspiration Today M19.011 - Primary osteoarthritis, right shoulder, M19.012 - Primary osteoarthritis, left shoulder Coding Level of Care Code Est Pt Level 3 (70004) Diagnoses Rheumatoid arthritis of multiple sites with negative rheumatoid factor M06.09 Rheumatoid arthritis location: multiple sites Rheumatoid factor presence: without rheumatoid factor Polyarticular osteoarthritis M15.9 CPT Codes Coding - Joint 5: 66391 - Acromioclavicular ([id number]) Coding - Joint 5: 96047 - Acromioclavicular ([id number])
[2024-12-13 15:36] VITALS: BP 132/80; PULSE 74; O2SAT 96; BMI 42.8
== END 2024-12-13 16:15 | disposition home or self-care (01) ==
LOC: HO.RHES 14:18
PROVIDERS: PCP Internal Medicine; Visit Provider Student in an Organized Health Care Education/Training Program
DX: M06.09 Rheumatoid arthritis without rheumatoid factor, multiple sites (principal); M19.011 Primary osteoarthritis, right shoulder; M19.012 Primary osteoarthritis, left shoulder
CPT/HCPCS: 20605; 99213

== ENCOUNTER → 2024-12-13 14:17 | Outpatient (BNVA) | payer OTHER, SELFPAY | PROVIDERS: PCP Internal Medicine; Visit Provider Student in an Organized Health Care Education/Training Program | DX: M06.09 Rheumatoid arthritis without rheumatoid factor, multiple sites (principal); M19.012 Primary osteoarthritis, left shoulder; M19.011 Primary osteoarthritis, right shoulder; M17.0 Bilateral primary osteoarthritis of knee; M16.0 Bilateral primary osteoarthritis of hip; M19.042 Primary osteoarthritis, left hand; M19.041 Primary osteoarthritis, right hand | CPT/HCPCS: 20605; 99212; J2003; J3300 ==